=== PATIENT | female | born 1960 | race Caucasian/White ===

== ENCOUNTER → 2016-09-12 | Outpatient (CLI) | payer OTHER ==
[~2016-09-12] MED LIST: CHOLTAB11 PO; CYAN10005 PO; DOCU100C31 PO; FLAV1TAB3 PO; FURO40TA3 PO; KETO2CRE14 TOP; LEVE750T PO; MRLP17 PO; NITR-5 PO; POLY1POW2 PO; PRLSR20 PO; SIMV40TA2 PO
[2016-09-12 14:36] LABS: BASO % 0.3 %; BASO ABS # 0.01 K/uL (0-0.2); COMPLETE YES; EOS % 2.7 %; HEMATOCRIT 40.3 % (37-47); LYMPH % 32.8 %; LYMPH ABS # 1.22 K/uL (1.2-3.4); MEAN CELL VOLUME 88.8 fL (80-100); MEAN CORPUSCULAR HEMOGLOBIN 28.6 pg (25-34); MEAN CORPUSCULAR HGB CONC 32.3 g/dl (32-36); MEAN PLATELET VOLUME 9.2 fL (7.4-10.4); MONO % 12.6 %; NEUT % 51.6 %; PLATELET COUNT 220 K/uL (130-400); RED BLOOD COUNT 4.54 M/uL (4.2-5.4); WHITE BLOOD COUNT 3.72 K/uL (4.8-10.8)
[2016-09-12 14:53] LABS: BLOOD UREA NITROGEN 20 mg/dl (7-18); BUN/CREATININE RATIO 16.3 (10-20); CALCIUM 8.8 mg/dl (8.5-10.1); CARBON DIOXIDE 28 mmol/L (21-32); CHLORIDE 107 mmol/L (98-107); GLUCOSE 97 mg/dl (70-99); SODIUM 142 mmol/L (136-145)
[2016-09-17 14:26] LABS: MYELOPEROXIDASE AB <1.0 AI (<1.0)
== END | disposition home or self-care (01) ==
LOC: C.LAB1850 12:49
PROVIDERS: ATTEND Internal Medicine
DX: E66.9 Obesity, unspecified (principal)

== ENCOUNTER 2016-11-18 09:53 | Emergency (ER) | payer OTHER ==
[~2016-11-18 09:53] MED LIST changes: -CHOLTAB11 PO; -FLAV1TAB3 PO; -POLY1POW2 PO
[2016-11-18 10:03] VITALS: TEMP 36.4
[2016-11-18] MEDS ORDERED: FLAV1TAB3 PO (10:22)
[2016-11-18] MEDS ORDERED: CHOLTAB11 PO (10:24)
[2016-11-18] MEDS ORDERED: POLY1POW2 PO (10:24)
--- NOTE | 2016-11-18 11:25 | DIAGNOSTIC IMAGING REPORT ---
LEFT KNEE 3 VIEWS CLINICAL HISTORY: pain, left leg pain COMPARISON: None. DISCUSSION: Moderate degenerative change all major joint spaces. No significant joint effusion. Mild reactive osteophytic change. There is no evidence for soft tissue swelling. IMPRESSION: Moderate rather significant degenerative change all major joint spaces. No acute process. Electronically signed by: Tejas Roth M.D. 11/18/2016 11:24 AM Dictated Date/Time: 11/18/2016 11:23 AM
--- NOTE | 2016-11-18 11:28 | DIAGNOSTIC IMAGING REPORT ---
LEFT ANKLE MIN 3 VIEWS ROUTINE CLINICAL HISTORY: pain, hist of surge pain COMPARISON: None DISCUSSION: Findings consistent with a bimalleolar open reduction internal fixation. Bone healing. To be complete. No acute bony abnormality. Subtalar joint is intact. Ankle mortise shows no evidence for disruption. Mild soft tissue edema is present. IMPRESSION: Postoperative change. Mild soft tissue edema. No acute bony abnormality. Electronically signed by: Tejas Roth M.D. 11/18/2016 11:27 AM Dictated Date/Time: 11/18/2016 11:26 AM
--- NOTE | 2016-11-18 11:40 | DIAGNOSTIC IMAGING REPORT ---
ULTRASOUND LEFT LOWER EXTREMITY VENOUS CLINICAL HISTORY: Left leg pain and swelling. COMPARISON STUDY: Left lower extremity venous ultrasound dated 02/23/2013. TECHNIQUE: Real-time, grayscale, and color Doppler sonography of the deep veins of the left lower extremity was performed from the inguinal crease to the calf. Compression and augmentation were utilized. FINDINGS: There is no sonographic evidence of deep venous thrombosis identified in the left lower extremity. The common femoral, superficial femoral, and popliteal veins are patent and normally compressible. The greater saphenous vein and the profunda femoris vein at the junction with the common femoral vein are clear. The visualized calf veins are patent. IMPRESSION: There is no sonographic evidence of deep venous thrombosis identified in the left lower extremity. Electronically signed by: Nikita Kinney M.D. 11/18/2016 11:38 AM Dictated Date/Time: 11/18/2016 11:38 AM
[2016-11-18 11:42] VITALS: BP 164/65; PULSE 86; O2SAT 95
--- NOTE | 2016-11-18 15:16 | EMERGENCY ROOM VISIT NOTE ---
History Report prepared by Waylon: Jennifer Sahu Under the Supervision of: Dr. Nikita Fish M.D. First contact with patient: 10:11 Chief Complaint: KNEEPAIN Stated Complaint: LEFT KNEE PAIN History of Present Illness The patient is a 56 year old female who presents to the Emergency Room with complaints of persistent left knee pain for the past couple of weeks. The mother and the niece are giving the history. They state that recently, the patient has been grabbing her left knee and has difficulty standing up and walking. They report that previously, she had an ankle injury and displayed similar grabbing behavior with that injury. They deny that the patient has had any recent falls. She does not have a fever or decreased appetite. Source of History: family (mother, niece) Onset: couple weeks ago Position: knee (left) Timing: other (persistent) Associated Symptoms: No fevers Note: Associated symptoms: no decrease in appetite. Review of Systems Unobtainable given her mental state. Past Medical & Surgical Medical Problems: (1) ACUTE KIDNEY FAILURE (2) Bronchitis (3) Cerebral palsy (4) Hernia repair (5) Myringotomy tubes (6) Renal failure syndrome (7) Seizure (8) WEGNERS Family History Patient reports no known family medical history. Social History Smoking Status: Never Smoker Alcohol Use: none Marital Status: single Housing Status: lives with family Occupation Status: disabled Current/Historical Medications Scheduled Cholecalciferol (D-5000), 5,000 UNITS PO DAILY Cyanocobalamin (Vitamin B-12), 1,000 MCG PO DAILY Docusate Sodium (Docusate Sodium), 2 CAP PO HS Flavoxate Hcl (Flavoxate Hcl), 100 MG PO TID Levetiracetam (Keppra), 750 MG PO BID Omeprazole (Prilosec), 20 MG PO DAILY Polyethylene Glycol 3350 (Bulk (Polyethylene Glycol 3350), 17 GM PO DAILY Simvastatin (Zocor), 40 MG PO QPM Scheduled PRN Furosemide (Lasix), 40 MG PO DAILY PRN for EDEMA IN LEGS Allergies Coded Allergies: Phenytoin (Unverified Allergy, Unknown, unknown, 11/18/16) MOTHER INDICATED THAT SHE WAS ONCE TAKING, BUT STOPPED BECAUSE IT WAS NOT WORKING. Topiramate (Unverified Allergy, Unknown, unknown, 11/18/16) was once taking but indicated it was not working for the pt.- per mother Physical Exam Vital Signs Date Time Temp Pulse Resp B/P Pulse Ox O2 Delivery O2 Flow Rate FiO2 11/18/16 11:42 86 16 164/65 95 Room Air 11/18/16 10:03 36.4 107 20 94 Room Air Physical Exam GENERAL: Lying on the stretcher. No acute distress. NEURO: MR noted. Moving all extremities. Awake. EXTREMITIES: No cellulitis in the lower extremities, no significant pedal edema. Left knee seems tender with movement, but there is no erythema or obvious joint effusion. Left hip and left ankle appear nontender. Medical Decision & Procedures ER Provider Diagnostic Interpretation: X ray results and stated below per my interpretation and radiologist interpretation. Other radiology results and stated below per my review and radiologist interpretation: LEFT ANKLE MIN 3 VIEWS ROUTINE CLINICAL HISTORY: pain, hist of surge pain COMPARISON: None DISCUSSION: Findings consistent with a bimalleolar open reduction internal fixation. Bone healing. To be complete. No acute bony abnormality. Subtalar joint is intact. Ankle mortise shows no evidence for disruption. Mild soft tissue edema is present. IMPRESSION: Postoperative change. Mild soft tissue edema. No acute bony abnormality. Electronically signed by: Tejas Roth M.D. 11/18/2016 11:27 AM Dictated Date/Time: 11/18/2016 11:26 AM LEFT KNEE 3 VIEWS CLINICAL HISTORY: pain, left leg pain COMPARISON: None. DISCUSSION: Moderate degenerative change all major joint spaces. No significant joint effusion. Mild reactive osteophytic change. There is no evidence for soft tissue swelling. IMPRESSION: Moderate rather significant degenerative change all major joint spaces. No acute process. Electronically signed by: Tejas Roth M.D. 11/18/2016 11:24 AM Dictated Date/Time: 11/18/2016 11:23 AM ULTRASOUND LEFT LOWER EXTREMITY VENOUS CLINICAL HISTORY: Left leg pain and swelling. COMPARISON STUDY: Left lower extremity venous ultrasound dated 02/23/2013. TECHNIQUE: Real-time, grayscale, and color Doppler sonography of the deep veins of the left lower extremity was performed from the inguinal crease to the calf. Compression and augmentation were utilized. FINDINGS: There is no sonographic evidence of deep venous thrombosis identified in the left lower extremity. The common femoral, superficial femoral, and popliteal veins are patent and normally compressible. The greater saphenous vein and the profunda femoris vein at the junction with the common femoral vein are clear. The visualized calf veins are patent. IMPRESSION: There is no sonographic evidence of deep venous thrombosis identified in the left lower extremity. Electronically signed by: Nikita Kinney M.D. 11/18/2016 11:38 AM Dictated Date/Time: 11/18/2016 11:38 AM ED Course 1012: The patient was evaluated in room A9. A complete history and physical exam was performed. 1146: I reevaluated the patient. She is resting comfortably. I updated the family on the results and treatment plan. They expressed understanding and agreement. She will be discharged home. Medical Decision Differential diagnoses: left knee effusion, Delong's cyst, DVT, cellulitis, arthritis, left ankle hardware malalignment. The patient presents with left knee pain. On exam, there was no cellulitis or evidence for a septic joint. Films of the left ankle do not show hardware malalignment or acute fracture. Left knee film shows arthritis, no large effusion, no fracture. Left leg ultrasound does not show evidence for DVT. The patient is likely having pain in her left knee from arthritis. She has had previous left knee surgery. I do think follow-up with her orthopedist would be reasonable. Tylenol for now for pain, ice for inflammation. If things are worsening, she can be returned. Impression Primary Impression: Left knee pain Scribe Attestation The scribe's documentation has been prepared under my direction and personally reviewed by me in its entirety. I confirm that the note above accurately reflects all work, treatment, procedures, and medical decision making performed by me. Departure Information Dispostion Home / Self-Care Referrals Parish Castro PA-C (PCP) Forms HOME CARE DOCUMENTATION FORM, IMPORTANT VISIT INFORMATION Patient Instructions My [facility] Additional Instructions ice for comfort as discussed tylenol for pain as directed and as needed follow with Dr. Del Castillo--call for an appt return for redness, fever or worsening symptoms no clotting or fractures today by imaging
== END 2016-11-18 12:02 | disposition home or self-care (01) ==
LOC: C.EDB 09:54 → C.EDA 12:02
DX: M25.562 Pain in left knee (principal); G40.909 Epilepsy, unspecified, not intractable, without status epilepticus; G80.9 Cerebral palsy, unspecified; Z79.899 Other long term (current) drug therapy; Z88.8 Allergy status to other drugs, medicaments and biological substances; M79.605 Pain in left leg; R60.0 Localized edema

== ENCOUNTER → 2016-12-17 | Outpatient (CLI) | payer OTHER ==
[~2016-12-17] MED LIST changes: +CHOLTAB11 PO; +FLAV1TAB3 PO; -KETO2CRE14 TOP; -MRLP17 PO; -NITR-5 PO; +POLY1POW2 PO
[2016-12-17 13:17] LABS: BASO % 0.4 %; BASO ABS # 0.02 K/uL (0-0.2); COMPLETE YES; EOS % 4.3 %; HEMATOCRIT 41.5 % (37-47); IG% 0.2 %; LYMPH ABS # 1.43 K/uL (1.2-3.4); MEAN CELL VOLUME 89.1 fL (80-100); MEAN CORPUSCULAR HGB CONC 32.5 g/dl (32-36); MONO % 11.4 %; NEUT % 51.7 %; PLATELET COUNT 226 K/uL (130-400); RED BLOOD COUNT 4.66 M/uL (4.2-5.4); WHITE BLOOD COUNT 4.47 K/uL (4.8-10.8)
[2016-12-17 13:45] LABS: BLOOD UREA NITROGEN 22 mg/dl (7-18); BUN/CREATININE RATIO 22.3 (10-20); CARBON DIOXIDE 31 mmol/L (21-32); CHLORIDE 105 mmol/L (98-107); GLUCOSE 80 mg/dl (70-99); POTASSIUM 4.1 mmol/L (3.5-5.1); SODIUM 142 mmol/L (136-145)
== END | disposition home or self-care (01) ==
LOC: C.LAB1850 11:50
PROVIDERS: ATTEND Internal Medicine
DX: F72 Severe intellectual disabilities (principal)

== ENCOUNTER → 2017-05-09 | Outpatient (CLI) | payer OTHER | END | disposition home or self-care (01) | LOC: C.RDSM 10:58 | PROVIDERS: ATTEND Orthopaedic Surgery Sports Medicine | DX: M25.562 Pain in left knee (principal) ==

== ENCOUNTER → 2017-07-22 | Outpatient (CLI) | payer OTHER ==
--- NOTE | 2017-07-22 14:12 | DIAGNOSTIC IMAGING REPORT ---
CHEST 2 VIEWS ROUTINE CLINICAL HISTORY: R06.2 [id number] COMPARISON STUDY: 09/20/2013 FINDINGS: The study is mildly limited from a technical standpoint. The heart is at the upper limits of normal in size. There is no focal pulmonary consolidation. There is no overt failure. There are no pleural effusions.[ IMPRESSION: No active disease in the chest. Electronically signed by: Max Shen M.D. 07/22/2017 2:11 PM Dictated Date/Time: 07/22/2017 2:10 PM
[2017-07-22 14:40] LABS: BASO % 0.4 %; BASO ABS # 0.02 K/uL (0-0.2); COMPLETE YES; HEMATOCRIT 42.5 % (37-47); IG% 0.2 %; LYMPH ABS # 1.15 K/uL (1.2-3.4); MEAN CELL VOLUME 91.6 fL (80-100); MEAN CORPUSCULAR HEMOGLOBIN 29.5 pg (25-34); MEAN CORPUSCULAR HGB CONC 32.2 g/dl (32-36); MEAN PLATELET VOLUME 9.1 fL (7.4-10.4); MONO % 7.3 %; NEUT % 63.1 %; PLATELET COUNT 224 K/uL (130-400); RED BLOOD COUNT 4.64 M/uL (4.2-5.4); WHITE BLOOD COUNT 4.79 K/uL (4.8-10.8)
[2017-07-22 15:07] LABS: BLOOD UREA NITROGEN 24 mg/dl (7-18); BUN/CREATININE RATIO 23.8 (10-20); CALCIUM 9.3 mg/dl (8.5-10.1); CARBON DIOXIDE 28 mmol/L (21-32); CHLORIDE 104 mmol/L (98-107); CREATININE 1.02 mg/dl (0.60-1.20); GLUCOSE 89 mg/dl (70-99); POTASSIUM 4.3 mmol/L (3.5-5.1); SODIUM 141 mmol/L (136-145)
== END | disposition home or self-care (01) ==
LOC: C.RAD1850 13:36
PROVIDERS: ATTEND Internal Medicine
DX: R06.2 Wheezing (principal)

== ENCOUNTER 2017-10-25 10:29 | Inpatient (IN) | payer OTHER ==
[~2017-10-25] VITALS: Ht 154.9 cm; Wt 88.4 kg
[2017-10-25] VITALS (9 sets, daily range): BP systolic 93–138; BP diastolic 50–86; PULSE 78–111; TEMP 37.3–38; O2SAT 84–95; Ht 154.9 cm; Wt 88.4 kg
[2017-10-25] MEDS ORDERED: ACETAMINOPHEN 500 MG TAB PO STA (10:40)
[2017-10-25] MEDS ORDERED: SODIUM CHLORIDE 0.9% 1000ML 1,000 ML IV STA ×2 (10:40→12:12)
--- NOTE | 2017-10-25 10:43 | EMERGENCY ROOM VISIT NOTE ---
History Report prepared by Waylon: Roque Flores Under the Supervision of: Dr. Andre Baca M.D. First contact with patient: 10:30 Stated Complaint: ILLNESS History of Present Illness The patient is a 57 year old female who presents to the Emergency Room with complaints of a fever that began 4 days ago. The patient is nonverbal and per the patient's mother, the patient has had a nonproductive cough with an O2 saturation of 85% on room air. Per the mother, the patient's PA advised the patient to take Tylenol every 6 hours and Robitussin. She states the patients has had decreased dietary intake since yesterday. She denies syncope and a history of diabetes. Source of History: patient, family Onset: 4 days ago Position: other (global) Timing: constant Associated Symptoms: + fevers, + cough Note: The patient has been taking Tylenol every 6 hours. Review of Systems See HPI for pertinent positives & negatives. A total of 10 systems reviewed and were otherwise negative. Past Medical & Surgical Medical Problems: (1) ACUTE KIDNEY FAILURE (2) Bronchitis (3) Cerebral palsy (4) Hernia repair (5) Myringotomy tubes (6) Renal failure syndrome (7) Seizure (8) WEGNERS Family History Patient reports no known family medical history. Social History Smoking Status: Never Smoker Alcohol Use: none Marital Status: single Housing Status: lives with family Occupation Status: disabled Current/Historical Medications Scheduled Alprazolam (Xanax), 0.25 MG PO BID Cholecalciferol (D-5000), 5,000 UNITS PO DAILY Cyanocobalamin (Vitamin B-12), 1,000 MCG PO DAILY Docusate Sodium (Docusate Sodium), 2 CAP PO HS Fesoterodine Fumarate (Toviaz), 1 TAB PO DAILY Flavoxate Hcl (Flavoxate Hcl), 100 MG PO TID Ketoconazole (Topical) (Ketoconazole), 1 APPLN TOP BID Levetiracetam (Keppra), 0.5 TAB PO BID Nitrofurantoin Macrocrystals (Macrodantin), 50 MG PO HS Omeprazole (Prilosec), 20 MG PO DAILY Simvastatin (Zocor), 40 MG PO QPM Allergies Coded Allergies: Phenytoin (Unverified Allergy, Unknown, unknown, 10/25/17) MOTHER INDICATED THAT SHE WAS ONCE TAKING, BUT STOPPED BECAUSE IT WAS NOT WORKING. Topiramate (Unverified Allergy, Unknown, unknown, 10/25/17) was once taking but indicated it was not working for the pt.- per mother Physical Exam Vital Signs Date Time Temp Pulse Resp B/P (MAP) Pulse Ox O2 Delivery O2 Flow Rate FiO2 10/25/17 12:57 39.1 115 18 105/69 95 Nasal Cannula 2.0 10/25/17 12:50 95 Nasal Cannula 2.0 10/25/17 11:26 121 18 141/93 96 Nasal Cannula 2.0 10/25/17 10:40 118 10/25/17 10:37 40.0 116 22 149/99 92 Room Air Physical Exam GENERAL: Patient is nonverbal, ill appearing and in minimal distress. HEENT: No acute trauma, normocephalic atraumatic, mucous membranes moist, no nasal congestion, no scleral icterus. NECK: No stridor, no adenopathy, no meningismus, trachea is midline. LUNGS: Diffuse crackles with faint wheezing in all lung lee. No dyspnea. Clear to auscultation and equal bilaterally. No rhonchi. HEART: Tachycardiac. Regular rhythm. No murmurs, rubs, gallops appreciated. ABDOMEN: Soft, nontender, bowel sounds positive, no masses appreciated, no peritonitis. BACK: No midline tenderness, no CVA tenderness EXTREMITIES: Normal motion all extremities, no cyanosis, no edema. NEUROLOGIC: No acute motor or sensory deficits, no focal weakness, cranial nerves grossly intact. Looking around room and interacting. Weakly moves legs. Able to use arms without problems. SKIN: No rash, no jaundice, no diaphoresis. Medical Decision & Procedures ER Provider Diagnostic Interpretation: Radiology results and stated below per my review and radiologist interpretation: CHEST ONE VIEW PORTABLE HISTORY: fever COMPARISON: Chest 07/22/2017. FINDINGS: The heart remains mildly enlarged. No focal lung consolidations to suggest pneumonia. No evidence for pulmonary edema. No pleural fusions. No pneumothorax. IMPRESSION: No significant change compared to the prior study. No acute process. Electronically signed by: Jeff Alamo M.D. 10/25/2017 12:39 PM Dictated Date/Time: 10/25/2017 12:36 PM Laboratory Results 10/25/17 11:04 Red Blood Count 4.18, Mean Corpuscular Volume 89.7, Mean Corpuscular Hemoglobin 29.2, Mean Corpuscular Hemoglobin Concent 32.5, Mean Platelet Volume 9.1, Neutrophils (%) (Auto) 85.7, Lymphocytes (%) (Auto) 9.1, Monocytes (%) (Auto) 4.8, Eosinophils (%) (Auto) 0.0, Basophils (%) (Auto) 0.2, Neutrophils # (Auto) 5.54, Lymphocytes # (Auto) 0.59, Monocytes # (Auto) 0.31, Eosinophils # (Auto) 0.00, Basophils # (Auto) 0.01 10/25/17 11:04 Test 10/25/17 10:35 10/25/17 11:04 10/25/17 11:15 10/25/17 11:41 Influenza Type A Antigen POS for Influ A (NEG) Influenza Type B Antigen Neg for Influ B (NEG) White Blood Count 6.46 K/uL (4.8-10.8) Red Blood Count 4.18 M/uL (4.2-5.4) Hemoglobin 12.2 g/dL (12.0-16.0) Hematocrit 37.5 % (37-47) Mean Corpuscular Volume 89.7 fL (80-100) Mean Corpuscular Hemoglobin 29.2 pg (25-34) Mean Corpuscular Hemoglobin Concent 32.5 g/dl (32-36) Platelet Count 122 K/uL (130-400) Mean Platelet Volume 9.1 fL (7.4-10.4) Neutrophils (%) (Auto) 85.7 % Lymphocytes (%) (Auto) 9.1 % Monocytes (%) (Auto) 4.8 % Eosinophils (%) (Auto) 0.0 % Basophils (%) (Auto) 0.2 % Neutrophils # (Auto) 5.54 K/uL (1.4-6.5) Lymphocytes # (Auto) 0.59 K/uL (1.2-3.4) Monocytes # (Auto) 0.31 K/uL (0.11-0.59) Eosinophils # (Auto) 0.00 K/uL (0-0.5) Basophils # (Auto) 0.01 K/uL (0-0.2) RDW Standard Deviation 45.3 fL (36.4-46.3) RDW Coefficient of Variation 13.8 % (11.5-14.5) Immature Granulocyte % (Auto) 0.2 % Immature Granulocyte # (Auto) 0.01 K/uL (0.00-0.02) Prothrombin Time 10.5 SECONDS (9.0-12.0) Prothromb Time International Ratio 1.0 (0.9-1.1) Anion Gap 7.0 mmol/L (3-11) Est Creatinine Clear Calc Drug Dose 48.6 ml/min Estimated GFR () 51.5 Estimated GFR (Non- 44.5 BUN/Creatinine Ratio 13.3 (10-20) Calcium Level 7.6 mg/dl (8.5-10.1) Magnesium Level 1.6 mg/dl (1.8-2.4) Total Bilirubin 0.3 mg/dl (0.2-1) Direct Bilirubin < 0.1 mg/dl (0-0.2) Aspartate Amino Transf (AST/SGOT) 21 U/L (15-37) Alanine Aminotransferase (ALT/SGPT) 20 U/L (12-78) Alkaline Phosphatase 69 U/L (45-117) Total Creatine Kinase 275 U/L (26-192) Creatine Kinase MB 3.4 ng/ml (0.5-3.6) Creatine Kinase MB Ratio 1.2 (0-3.0) Troponin I < 0.015 ng/ml (0-0.045) Total Protein 6.7 gm/dl (6.4-8.2) Albumin 2.8 gm/dl (3.4-5.0) Bedside Lactic Acid Venous 0.95 mmol/L (0.90-1.70) Urine Color YELLOW Urine Appearance CLEAR (CLEAR) Urine pH 5.0 (4.5-7.5) Urine Specific Douglas 1.024 (1.000-1.030) Urine Protein 1+ (NEG) Urine Glucose (UA) NEG (NEG) Urine Ketones NEG (NEG) Urine Occult Blood NEG (NEG) Urine Nitrite NEG (NEG) Urine Bilirubin NEG (NEG) Urine Urobilinogen NEG (NEG) Urine Leukocyte Esterase NEG (NEG) Urine WBC (Auto) 1-5 /hpf (0-5) Urine RBC (Auto) 0-4 /hpf (0-4) Urine Hyaline Casts (Auto) 1-5 /lpf (0-5) Urine Epithelial Cells (Auto) 10-20 /lpf (0-5) Urine Bacteria (Auto) NEG (NEG) Laboratory results as reviewed by me. Medications Administered Medications (Trade) Dose Ordered Sig/Zenaida Route Start Time Stop Time Status Last Admin Dose Admin Sodium Chloride 1,000 ml @ 999 mls/hr Q1H1M STAT IV 10/25/17 10:40 10/25/17 11:40 DC 10/25/17 10:59 999 MLS/HR Acetaminophen (Tylenol Tab) 1,000 mg NOW STAT PO 10/25/17 10:40 10/25/17 10:42 DC 10/25/17 11:00 1,000 MG Oseltamivir Phosphate (Tamiflu Cap) 75 mg NOW STAT PO 10/25/17 11:15 10/25/17 11:16 DC 10/25/17 11:23 75 MG Vancomycin HCl 2000 mg/Sodium Chloride 540 ml @ 200 mls/hr ONE STAT IV 10/25/17 12:01 10/25/17 14:42 10/25/17 12:54 200 MLS/HR Ceftriaxone Sodium (Rocephin Inj) 1 gm NOW STAT IV 10/25/17 12:01 10/25/17 12:03 DC 10/25/17 12:15 1 GM Sodium Chloride 1,000 ml @ 250 mls/hr Q4H STAT IV 10/25/17 12:12 10/25/17 16:11 10/25/17 12:17 250 MLS/HR ECG Per My Interpretation Indication: other (Fever) Rate (beats per minute): 116 Rhythm: sinus tachycardia Findings: no acute ischemic change, no ectopy, other (low voltage QRS) Change: EKG: Electrocardiogram per my interpretation. ED Course 1030: The patient was evaluated in room B12B. A complete history and physical exam was performed. 1144: I checked on the patient and their blood pressure is coming down. 1200: I discussed the patient's case with Dr. Cook. The patient will be evaluated for further treatment and disposition. 1300: Upon reevaluation, the patient is doing well. Discussed results and treatment plan with the patient. She verbalized understanding and agreement with the treatment plan. The patient will be evaluated for further management. Medical Decision Differential: Viral, Pharyngitis, Cellulitis, Pneumonia, Influenza, Meningitis, Sepsis, Bacteremia, UTI/Pyelonephritis, Endocrine, Toxicologic, amongst other pathologies entertained. Septic intellectually disabled 57 yr old female arrives with several days fevers , cough and worsening weakness. She was profoundly hypoxic for EMS though with NC O2 is doing much better. Single neb without steroids given just mild wheezing and more on side of crackles. CXR without acute infiltrate. Lactic acid and BP OK thus hold off from 30ml/kg fluid resus as already fluids in lee and given some here as well. She is with normal wbc as well. Fever coming down with Tylenol as is HR. Given tamiflu. With her severity and fact she will be coming in seems reasonable empirically treating with IV abx. Blood cultures obtained on arrival. Stable throughout rest of stay. Medication Reconcilliation Current Medication List: was personally reviewed by me Blood Pressure Screening Patient's blood pressure: Elevated blood pressure Blood pressure disposition: Elevated BP felt to be situational Consults Time Called: 1159 Consulting Physician: Dr. Juan Cook Returned Call: 1200 Discussed the patient's case. The patient will be evaluated for further treatment and disposition. Impression Primary Impression: Influenza A Additional Impressions: Sepsis Hypoxia Scribe Attestation The scribe's documentation has been prepared under my direction and personally reviewed by me in its entirety. I confirm that the note above accurately reflects all work, treatment, procedures, and medical decision making performed by me. Departure Information Referrals Parish Castro PA-C (PCP) Problem Qualifiers
[2017-10-25 11:13] LABS: INFLUENZA B ANTIGEN Neg for Influ B (NEG)
[2017-10-25] MEDS ORDERED: OSELTAMIVIR PHOSPHATE 75 MG CAP PO STA (11:15)
[2017-10-25 11:32] LABS: HEMATOCRIT 37.5 % (37-47); HEMOGLOBIN 12.2 g/dL (12.0-16.0); MEAN CELL VOLUME 89.7 fL (80-100); MEAN CORPUSCULAR HEMOGLOBIN 29.2 pg (25-34); MEAN CORPUSCULAR HGB CONC 32.5 g/dl (32-36); MEAN PLATELET VOLUME 9.1 fL (7.4-10.4); PLATELET COUNT 122 K/uL (130-400); RED CELL DISTRIBUTION WIDTH CV 13.8 % (11.5-14.5); RED CELL DISTRIBUTION WIDTH SD 45.3 fL (36.4-46.3); WHITE BLOOD COUNT 6.46 K/uL (4.8-10.8)
[2017-10-25 11:50] LABS: BASO % 0.2 %; BASO ABS # 0.01 K/uL (0-0.2); IG# 0.01 K/uL (0.00-0.02); LYMPH % 9.1 %; LYMPH ABS # 0.59 K/uL (1.2-3.4); MONO % 4.8 %; MONO ABS # 0.31 K/uL (0.11-0.59); NEUT % 85.7 %; NEUT ABS # 5.54 K/uL (1.4-6.5)
[2017-10-25] MEDS ORDERED: VANCOMYCIN INJ 2,000 MG in SODIUM CHLORIDE 0.9% 500ML 500 ML IV STA (12:01)
[2017-10-25] MEDS ORDERED: CEFTRIAXONE SOD INJ 1 GM ADDVIAL IV STA (12:01)
[2017-10-25 12:06] LABS: ALBUMIN 2.8 gm/dl (3.4-5.0); ALT/SGPT 20 U/L (12-78); BLOOD UREA NITROGEN 17 mg/dl (7-18); CALCIUM 7.6 mg/dl (8.5-10.1); CARBON DIOXIDE 26 mmol/L (21-32); CREATININE 1.31 mg/dl (0.60-1.20); GLUCOSE 156 mg/dl (70-99); POTASSIUM 3.9 mmol/L (3.5-5.1); SODIUM 138 mmol/L (136-145)
[2017-10-25 12:11] LABS: ALKALINE PHOSPHATASE 69 U/L (45-117); AST/SGOT 21 U/L (15-37); CKMB 3.4 ng/ml (0.5-3.6); TOTAL PROTEIN 6.7 gm/dl (6.4-8.2)
[2017-10-25] MEDS ORDERED: VANCOMYCIN CONSULT ACTIVE PRN (12:15)
--- NOTE | 2017-10-25 12:41 | DIAGNOSTIC IMAGING REPORT ---
CHEST ONE VIEW PORTABLE HISTORY: fever COMPARISON: Chest 07/22/2017. FINDINGS: The heart remains mildly enlarged. No focal lung consolidations to suggest pneumonia. No evidence for pulmonary edema. No pleural fusions. No pneumothorax. IMPRESSION: No significant change compared to the prior study. No acute process. Electronically signed by: Jeff Alamo M.D. 10/25/2017 12:39 PM Dictated Date/Time: 10/25/2017 12:36 PM
[2017-10-25] MEDS ORDERED: FESO8TAB PO (12:44)
[2017-10-25] MEDS ORDERED: ALPR0.25 PO (12:44)
[2017-10-25] MEDS ORDERED: NITR1CAP33 PO (12:44)
[2017-10-25] MEDS ORDERED: KETO2SHA TOP (12:44)
--- NOTE | 2017-10-25 13:06 | History and Physical ---
History & Physical Date & Time of Service: Oct 25, 2017 at 12:24 Chief Complaint: Illness Primary Care Physician: Parish Castro PA-C History of Present Illness Source: family Ms. Becker is a 57 year old non verbal woman with history of cerebral palsy. She started getting ill on Friday and around 1:00 this afternoon she started running a fever. She is unable to give a ros Pmhx of cerebral palsy, renal insufficiency, Wegeners granulomatosis (does not appear from outpatient records that she is undergoing treatment for this), remote history of seizure Past Medical/Surgical History Medical Problems: (1) Bronchitis Status: Resolved (2) Cerebral palsy Status: Chronic (3) Hernia repair Status: Resolved (4) Myringotomy tubes Status: Resolved (5) Renal failure syndrome Status: Chronic (6) Seizure Status: Chronic Family History Patient reports no known family medical history. Social History Smoking Status: Never Smoker Marital Status: single Housing status: lives with family Occupational Status: disabled Immunizations History of Influenza Vaccine: Yes History of Tetanus Vaccine?: Yes History of Pneumococcal: Unknown History of Hepatitis B Vaccine: No Multi-Drug Resistant Organisms History of MDRO: No Allergies Coded Allergies: Phenytoin (Unverified Allergy, Unknown, unknown, 10/25/17) MOTHER INDICATED THAT SHE WAS ONCE TAKING, BUT STOPPED BECAUSE IT WAS NOT WORKING. Topiramate (Unverified Allergy, Unknown, unknown, 10/25/17) was once taking but indicated it was not working for the pt.- per mother Home Medications Scheduled Alprazolam (Xanax), 0.25 MG PO BID Cholecalciferol (D-5000), 5,000 UNITS PO DAILY Cyanocobalamin (Vitamin B-12), 1,000 MCG PO DAILY Docusate Sodium (Docusate Sodium), 2 CAP PO HS Fesoterodine Fumarate (Toviaz), 1 TAB PO DAILY Flavoxate Hcl (Flavoxate Hcl), 100 MG PO TID Ketoconazole (Topical) (Ketoconazole), 1 APPLN TOP BID Levetiracetam (Keppra), 0.5 TAB PO BID Nitrofurantoin Macrocrystals (Macrodantin), 50 MG PO HS Omeprazole (Prilosec), 20 MG PO DAILY Simvastatin (Zocor), 40 MG PO QPM Physical Exam Vital Signs Date Time Temp Pulse Resp B/P (MAP) Pulse Ox O2 Delivery O2 Flow Rate FiO2 10/25/17 11:26 121 18 141/93 96 Nasal Cannula 2.0 10/25/17 10:40 118 10/25/17 10:37 40.0 116 22 149/99 92 Room Air General: ill appearing Eyes: normal inspection, PERLL Respiratory: chest non tender, mild coarseness left base, no respiratory distress, no accessory muscle use Cardiac: regular rate and rhythm, no rub or gallop, no murmur, no edema, GI/: active bowel sounds, no abd pain or tenderness, soft, non distended Extremities: normal range of motion, normal strength, non tender Neuro/Psych: alert and non verbal Skin: normal color, dry Diagnostics Laboratory Results Results Past 24 Hours Test 10/25/17 10:35 10/25/17 11:04 10/25/17 11:15 10/25/17 11:41 Range/Units Influenza Type A Antigen POS for Influ A NEG Influenza Type B Antigen Neg for Influ B NEG White Blood Count 6.46 4.8-10.8 K/uL Red Blood Count 4.18 4.2-5.4 M/uL Hemoglobin 12.2 12.0-16.0 g/dL Hematocrit 37.5 37-47 % Mean Corpuscular Volume 89.7 80-100 fL Mean Corpuscular Hemoglobin 29.2 25-34 pg Mean Corpuscular Hemoglobin Concent 32.5 32-36 g/dl Platelet Count 122 130-400 K/uL Mean Platelet Volume 9.1 7.4-10.4 fL Neutrophils (%) (Auto) 85.7 % Lymphocytes (%) (Auto) 9.1 % Monocytes (%) (Auto) 4.8 % Eosinophils (%) (Auto) 0.0 % Basophils (%) (Auto) 0.2 % Neutrophils # (Auto) 5.54 1.4-6.5 K/uL Lymphocytes # (Auto) 0.59 1.2-3.4 K/uL Monocytes # (Auto) 0.31 0.11-0.59 K/uL Eosinophils # (Auto) 0.00 0-0.5 K/uL Basophils # (Auto) 0.01 0-0.2 K/uL RDW Standard Deviation 45.3 36.4-46.3 fL RDW Coefficient of Variation 13.8 11.5-14.5 % Immature Granulocyte % (Auto) 0.2 % Immature Granulocyte # (Auto) 0.01 0.00-0.02 K/uL Prothrombin Time 10.5 9.0-12.0 SECONDS Prothromb Time International Ratio 1.0 0.9-1.1 Sodium Level 138 136-145 mmol/L Potassium Level 3.9 3.5-5.1 mmol/L Chloride Level 105 98-107 mmol/L Carbon Dioxide Level 26 21-32 mmol/L Anion Gap 7.0 3-11 mmol/L Blood Urea Nitrogen 17 7-18 mg/dl Creatinine 1.31 0.60-1.20 mg/dl Est Creatinine Clear Calc Drug Dose 48.6 ml/min Estimated GFR () 51.5 Estimated GFR (Non- 44.5 BUN/Creatinine Ratio 13.3 10-20 Random Glucose 156 70-99 mg/dl Calcium Level 7.6 8.5-10.1 mg/dl Magnesium Level 1.6 1.8-2.4 mg/dl Total Bilirubin 0.3 0.2-1 mg/dl Direct Bilirubin < 0.1 0-0.2 mg/dl Aspartate Amino Transf (AST/SGOT) 21 15-37 U/L Alanine Aminotransferase (ALT/SGPT) 20 12-78 U/L Alkaline Phosphatase 69 45-117 U/L Total Creatine Kinase 275 26-192 U/L Creatine Kinase MB 3.4 0.5-3.6 ng/ml Creatine Kinase MB Ratio 1.2 0-3.0 Troponin I < 0.015 0-0.045 ng/ml Total Protein 6.7 6.4-8.2 gm/dl Albumin 2.8 3.4-5.0 gm/dl Bedside Lactic Acid Venous 0.95 0.90-1.70 mmol/L Urine Color YELLOW Urine Appearance CLEAR CLEAR Urine pH 5.0 4.5-7.5 Urine Specific [employer] 1.024 1.000-1.030 Urine Protein 1+ NEG Urine Glucose (UA) NEG NEG Urine Ketones NEG NEG Urine Occult Blood NEG NEG Urine Nitrite NEG NEG Urine Bilirubin NEG NEG Urine Urobilinogen NEG NEG Urine Leukocyte Esterase NEG NEG Urine WBC (Auto) 1-5 0-5 /hpf Urine RBC (Auto) 0-4 0-4 /hpf Urine Hyaline Casts (Auto) 1-5 0-5 /lpf Urine Epithelial Cells (Auto) 10-20 0-5 /lpf Urine Bacteria (Auto) NEG NEG Microbiology Results 10/25/17 Blood Culture, Received Pending 10/25/17 Blood Culture, Received Pending CXR normal EKG Sinus tachycardia Low voltage QRS Borderline ECG When compared with ECG of 20-FEB-2015 18:47, Vent. rate has increased BY 41 BPM Impression Assessment and Plan Ms. Becker is a 57 year old woman here for Influenza A Flu A - admit telemetry - IVF, tamiflu, duonebs, titrate O2 per protocol - BC pending - CXR showed no acute process - Lactic acid wnl, febrile at 40 degrees - acetaminophen for fever, would not give ibuprofen as patient has history of kidney disease Acute on chronic kidney disease - baseline Creat appears to be around 1, elevated at 1.3 - IVF and repeat prp am Hypomagnesemia - magnesium 1.6 - 2g magnesium now History of seizures - continue home dose keppra History of incontinence/UTI - continue flovoxate - per outpatient notes, patient had stopped Toviaz - continue nitrofurantoin for UTI prophylaxis Supervising Note Dr. Cook I performed a history and physical examination on the patient. I reviewed above note and agree with it. I discussed plan with APC and patient. During my face to face encounter with the patient, I answered all of the patient's questions. Advanced Directives Existing Advance Directive: No Existing Living Will: No Existing Power of Sand Conditioner: No Existing Health Care Proxy: No Resuscitation Status FULL RESUSCITATION VTE Prophylaxis VTE Risk Assessment Done? Y/N: Yes Risk Level: Moderate Given or contraindicated: Unfractionated heparin SQ
[2017-10-25] MEDS ORDERED: SODIUM CHLORIDE 0.9% 1000ML 1,000 ML IV SCH (13:15)
[2017-10-25] MEDS ORDERED: IV FLUIDS COMPLETED PRN (14:15)
[2017-10-25] MEDS ORDERED: ALBUT/IPRATROP 3MG/0.5MG NEB 3 ML VIAL INH PRN (14:15)
[2017-10-25] MEDS: ALBUT/IPRATROP 3MG/0.5MG NEB 3 ML VIAL INH SCH ×2 (14:27→19:40)
[2017-10-25] MEDS: SODIUM CHLORIDE 0.9% 1000ML 1,000 ML IV SCH ×2 (15:15→22:30)
[2017-10-25] MEDS: FLAVOXATE HCL 100 MG PO SCH ×2 (15:48→20:46)
[2017-10-25] MEDS: MAGNESIUM SULFATE 1GM / D5W 1 GM in PREMIXED IN D5W 100 ML IV SCH ×2 (16:48→17:54)
[2017-10-25] MEDS: DOCUSATE SODIUM 100 MG CAP PO SCH (20:42)
[2017-10-25] MEDS: LEVETIRACETAM 250 MG TAB PO SCH (20:42)
[2017-10-25] MEDS: NITROFURANTOIN MACROCRYSTALS 50 MG CAP PO SCH (20:44)
[2017-10-25] MEDS: ALPRAZOLAM 0.25 MG TAB PO SCH (20:47)
[2017-10-25] MEDS: SIMVASTATIN 40 MG TAB PO SCH (20:48)
[2017-10-25] MEDS: HEPARIN SOD 5000 UNIT/0.5 ML CARP SQ SCH (20:49)
[2017-10-25] MEDS: ACETAMINOPHEN 325 MG TAB PO PRN (21:03)
[2017-10-25] MEDS: OSELTAMIVIR PHOSPHATE SUSP 30 MG/5 ML UDP PO SCH (21:30)
[2017-10-26] VITALS (20 sets, daily range): BP systolic 104–168; BP diastolic 66–81; PULSE 85–106; TEMP 37–39.4; O2SAT 89–97
[2017-10-26] MEDS: ACETAMINOPHEN 325 MG TAB PO PRN ×4 (01:41→20:47)
[2017-10-26 05:53] LABS: HEMATOCRIT 33.3 % (37-47); HEMOGLOBIN 10.8 g/dL (12.0-16.0); MEAN CELL VOLUME 90.2 fL (80-100); MEAN CORPUSCULAR HEMOGLOBIN 29.3 pg (25-34); MEAN CORPUSCULAR HGB CONC 32.4 g/dl (32-36); MEAN PLATELET VOLUME 8.8 fL (7.4-10.4); PLATELET COUNT 112 K/uL (130-400); RED CELL DISTRIBUTION WIDTH CV 14.2 % (11.5-14.5); RED CELL DISTRIBUTION WIDTH SD 47.4 fL (36.4-46.3); WHITE BLOOD COUNT 5.42 K/uL (4.8-10.8)
[2017-10-26 06:22] LABS: CALCIUM 7.4 mg/dl (8.5-10.1); CREATININE 1.04 mg/dl (0.60-1.20); POTASSIUM 3.8 mmol/L (3.5-5.1)
[2017-10-26] MEDS: ALBUT/IPRATROP 3MG/0.5MG NEB 3 ML VIAL INH SCH ×4 (06:56→19:47)
[2017-10-26] MEDS: ALPRAZOLAM 0.25 MG TAB PO SCH ×2 (07:25→19:38)
[2017-10-26] MEDS: OSELTAMIVIR PHOSPHATE SUSP 30 MG/5 ML UDP PO SCH ×2 (07:25→20:38)
[2017-10-26] MEDS: PANTOprazole SOD 40 MG TAB PO SCH (07:25)
[2017-10-26] MEDS: CYANOCOBALAMIN 500 MCG TAB (VIT B-12) PO SCH (07:25)
[2017-10-26] MEDS: FLAVOXATE HCL 100 MG PO SCH ×3 (07:26→19:39)
[2017-10-26] MEDS: CHOLECALCIFEROL 1000 INTER.UNIT TAB PO SCH (07:26)
[2017-10-26] MEDS: SODIUM CHLORIDE 0.9% 1000ML 1,000 ML IV SCH ×2 (07:27→15:15)
[2017-10-26] MEDS: LEVETIRACETAM 250 MG TAB PO SCH ×2 (07:27→19:41)
[2017-10-26] MEDS: HEPARIN SOD 5000 UNIT/0.5 ML CARP SQ SCH ×2 (08:01→20:42)
[2017-10-26] MEDS ORDERED: ONDANSETRON INJ 2 MG/ML 2 ML VIAL ONE (10:34)
--- NOTE | 2017-10-26 14:25 | Hospitalist Progress Note ---
Hospitalist Progress Note Date of Service Oct 26, 2017. (Allison Simon ., MELISSA) Subjective Pt evaluation today including: conversation w/ patient, physical exam, chart review, lab review, review of inpatient medication list Voiding: no voiding problems Ms. Becker is more interactive than she was last night and more alert. She is unable to answer review of systems (Allison Simon ., MELISSA) Medications Medications (Trade) Dose Ordered Sig/Zenaida Route Start Time Stop Time Status Last Admin Dose Admin Alprazolam (Xanax Tab) 0.25 mg BID PO 10/25/17 21:00 11/24/17 20:59 10/26/17 07:25 0.25 MG Cyanocobalamin (Vitamin B-12 Tab) 1,000 mcg DAILY PO 10/26/17 09:00 11/25/17 08:59 10/26/17 07:25 1,000 MCG Docusate Sodium (coLACE CAP) 200 mg HS PO 10/25/17 21:00 11/24/17 20:59 10/25/17 20:42 200 MG Levetiracetam (Keppra Tab) 375 mg BID PO 10/25/17 21:00 11/24/17 20:59 10/26/17 07:27 375 MG Nitrofurantoin Macrocrystals (Macrodantin Cap) 50 mg HS PO 10/25/17 21:00 10/30/17 20:59 10/25/17 20:44 50 MG Simvastatin (Zocor Tab) 40 mg QPM PO 10/25/17 21:00 11/24/17 20:59 10/25/17 20:48 40 MG Cholecalciferol (Vitamin D Tab) 5,000 inter.unit DAILY PO 10/26/17 09:00 11/25/17 08:59 10/26/17 07:26 5,000 INTER.UNIT Pantoprazole Sodium (Protonix Tab) 40 mg DAILY PO 10/26/17 09:00 11/25/17 08:59 10/26/17 07:25 40 MG Oseltamivir Phosphate (Tamiflu Susp) 30 mg BID PO 10/25/17 21:00 10/30/17 07:00 10/26/17 07:25 30 MG Sodium Chloride 1,000 ml @ 125 mls/hr Q8H IV 10/25/17 15:15 11/24/17 15:14 10/26/17 07:27 125 MLS/HR Heparin Sodium (Porcine) (Heparin Sq 5000 Unit/0.5ml) 5,000 unit Q12 SQ 10/25/17 21:00 11/24/17 20:59 10/25/17 20:49 5,000 UNIT Albuterol/ Ipratropium (Duoneb) 3 ml QIDR INH 10/25/17 16:00 11/24/17 15:59 10/26/17 11:23 3 ML Magnesium Sulfate 1 gm/Prmx 100 ml @ 100 mls/hr Q1H IV 10/25/17 16:30 10/25/17 18:29 DC 10/25/17 17:54 100 MLS/HR Ondansetron HCl (Zofran Inj) 4 mg STK-MED ONCE .ROUTE 10/26/17 10:34 10/26/17 10:35 DC 10/26/17 10:34 4 MG (Allison Simon, MELISSA) Objective Vital Signs Date Time Temp Pulse Resp B/P (MAP) Pulse Ox O2 Delivery O2 Flow Rate FiO2 10/26/17 12:32 39.3 10/26/17 12:00 Room Air 10/26/17 11:30 39.4 92 18 168/81 (110) 91 Room Air 10/26/17 11:24 91 18 91 Room Air 10/26/17 08:00 Nasal Cannula 4.0 10/26/17 07:55 37.4 106 18 110/68 (82) 96 10/26/17 07:05 37.8 97 18 118/69 (85) 97 7.0 10/26/17 06:56 85 18 92 Room Air 10/26/17 04:00 93 Nasal Cannula 3.0 10/26/17 03:39 37.6 95 20 119/71 (87) 94 Nasal Cannula 3.0 10/26/17 01:32 38.0 10/26/17 00:00 93 Nasal Cannula 3.0 10/25/17 23:30 38.0 92 22 138/76 (96) 92 Nasal Cannula 10/25/17 20:00 89 Room Air 10/25/17 19:40 78 18 84 Room Air 10/25/17 19:24 37.6 107 22 93/68 (76) 91 Room Air 10/25/17 16:00 93 Nasal Cannula 3.0 10/25/17 15:44 37.3 101 24 94/50 (65) 90 Nasal Cannula 3.0 10/25/17 14:30 101 18 92 Room Air (Allison Simon CRNP) Physical Exam Notes: General: no distress Eyes: normal inspection, PERLL Respiratory: chest non tender, clear to auscultation, normal breath sounds, no respiratory distress, no accessory muscle use Cardiac: regular rate and rhythm, no rub or gallop, no murmur, no edema, no jvd GI/: active bowel sounds, no abd pain or tenderness, soft, non distended Extremities: normal range of motion, normal strength, non tender Neuro/Psych: alert and oriented x 3, normal mood and affect Skin: normal color, dry (Allison Simon CRNP) Laboratory Results Last 24 Hours Test 10/26/17 05:22 White Blood Count 5.42 K/uL Red Blood Count 3.69 M/uL Hemoglobin 10.8 g/dL Hematocrit 33.3 % Mean Corpuscular Volume 90.2 fL Mean Corpuscular Hemoglobin 29.3 pg Mean Corpuscular Hemoglobin Concent 32.4 g/dl RDW Standard Deviation 47.4 fL RDW Coefficient of Variation 14.2 % Platelet Count 112 K/uL Mean Platelet Volume 8.8 fL Sodium Level 140 mmol/L Potassium Level 3.8 mmol/L Chloride Level 109 mmol/L Carbon Dioxide Level 25 mmol/L Anion Gap 6.0 mmol/L Blood Urea Nitrogen 17 mg/dl Creatinine 1.04 mg/dl Est Creatinine Clear Calc Drug Dose 60.3 ml/min Estimated GFR () 68.1 Estimated GFR (Non- 58.8 BUN/Creatinine Ratio 16.7 Random Glucose 88 mg/dl Calcium Level 7.4 mg/dl (Allison Simon CRNP) Assessment and Plan Ms. Becker is a 57 year old woman here for Influenza A Flu A/sepsis/hypoxic respiratory failure - continue IVF, tamiflu, duonebs, titrate O2 per protocol - BC pending - CXR showed no acute process - Lactic acid wnl at admission, continues to have intermittent fevers - acetaminophen for fever, would not give ibuprofen as patient has history of kidney disease Acute on chronic kidney disease - resolved - elevated at 1.3 on admission -at baseline this morning Hypomagnesemia - repleated History of seizures - continue home dose keppra History of incontinence/UTI - continue flovoxate - per outpatient notes, patient had stopped Toviaz - continue nitrofurantoin for UTI prophylaxis Full code Heparin dvt proph (Allison Simon ., MELISSA) Reviewed: Pt Seen/Exam by Me (Leona Saldana MD) History OFFSET PROOF PRESS OPERATOR supervision Note: I interviewed and examined the patient. Discussed with MELISSA Simon and agree with findings and plan as documented in the note. Any exceptions or clarifications are listed here: Patient seems very pleasant and is smiling. Has a cough. She pulled out her IV today and has a one-on-one sitter. She is not eating much and is having to be straight cathed. Continues to be febrile Vitals reviewed Gen: [Alert and awake, nonverbal except for some grunting and waves at me with a smile, NAD] HEENT: [anicteric sclerae, EOMI] CV: [RRR no mgr nl S1S2] Pulm: [CTAB no wcr, harsh sounding cough] Abd: [+BS soft NT ND no masses or hernias] Ext: [no edema, 2+ DP pulses] Skin: [no rashes, warm/dry] 57-year-old female with history of cerebral palsy and intellectual disability who is nonverbal, CKD stage III, Joanne's granulomatosis, seizure disorder, here with influenza A respiratory illness, sepsis, and acute hypoxemic respiratory failure. -Much improved but remains febrile -Continue supportive care, Tamiflu, no evidence of bacterial infection at this time -Continue IV fluids until improved appetite and p.o. intake -Could potentially discharge back to home tomorrow Documented By: Leona Saldana (Leona Saldana MD)
[2017-10-26] MEDS ORDERED: NURSING VERBAL MED ORDER ONE (14:45)
[2017-10-26] MEDS ORDERED: ONDANSETRON INJ 2 MG/ML 2 ML VIAL IV PRN (15:00)
[2017-10-26] MEDS: NITROFURANTOIN MACROCRYSTALS 50 MG CAP PO SCH (19:38)
[2017-10-26] MEDS: SIMVASTATIN 40 MG TAB PO SCH (19:38)
[2017-10-26] MEDS: DOCUSATE SODIUM 100 MG CAP PO SCH (19:38)
[2017-10-27] VITALS (10 sets, daily range): BP systolic 104–130; BP diastolic 62–82; PULSE 61–87; TEMP 36.7–37.4; O2SAT 88–92
[2017-10-27] MEDS: SODIUM CHLORIDE 0.9% 1000ML 1,000 ML IV SCH ×3 (01:33→15:29)
[2017-10-27 06:06] LABS: HEMATOCRIT 32.8 % (37-47); HEMOGLOBIN 10.3 g/dL (12.0-16.0); MEAN CELL VOLUME 91.9 fL (80-100); MEAN CORPUSCULAR HEMOGLOBIN 28.9 pg (25-34); MEAN CORPUSCULAR HGB CONC 31.4 g/dl (32-36); PLATELET COUNT 111 K/uL (130-400); RED CELL DISTRIBUTION WIDTH CV 14.3 % (11.5-14.5); RED CELL DISTRIBUTION WIDTH SD 48.4 fL (36.4-46.3); WHITE BLOOD COUNT 3.17 K/uL (4.8-10.8)
[2017-10-27] MEDS: ACETAMINOPHEN 325 MG TAB PO PRN ×2 (06:30→21:48)
[2017-10-27 06:39] LABS: CALCIUM 7.7 mg/dl (8.5-10.1); CREATININE 1.07 mg/dl (0.60-1.20); POTASSIUM 4.1 mmol/L (3.5-5.1)
[2017-10-27] MEDS: ALBUT/IPRATROP 3MG/0.5MG NEB 3 ML VIAL INH SCH ×4 (07:12→19:02)
[2017-10-27] MEDS: FLAVOXATE HCL 100 MG PO SCH ×3 (08:19→21:49)
[2017-10-27] MEDS: LEVETIRACETAM 250 MG TAB PO SCH ×2 (08:19→21:50)
[2017-10-27] MEDS: CYANOCOBALAMIN 500 MCG TAB (VIT B-12) PO SCH (08:19)
[2017-10-27] MEDS: PANTOprazole SOD 40 MG TAB PO SCH (08:20)
[2017-10-27] MEDS: CHOLECALCIFEROL 1000 INTER.UNIT TAB PO SCH (08:20)
[2017-10-27] MEDS: ALPRAZOLAM 0.25 MG TAB PO SCH ×2 (08:25→21:47)
[2017-10-27] MEDS: OSELTAMIVIR PHOSPHATE SUSP 30 MG/5 ML UDP PO SCH ×2 (08:25→21:53)
[2017-10-27] MEDS: HEPARIN SOD 5000 UNIT/0.5 ML CARP SQ SCH ×2 (08:26→21:51)
--- NOTE | 2017-10-27 08:32 | Clinical Documentation Query ---
ANAHI Crowell : CLINICAL DOCUMENTATION QUERIES QUERY 1 OF 2 Please document the POA status of sepsis as this was not documented on admission, but subsequently thereafter. Thank you. In your clinical opinion is this patient being managed for: ( x ) Sepsis due to influenza A, POA ( ) Sepsis due to influenza A, not POA ( ) Not Agree ( ) Other explanation of clinical findings (Please Explain) ( ) Unable to determine (Please Define) ( ) Need to Discuss QUERY 2 OF 2 Documentation includes "Acute on chronic kidney disease". This literally translates to acute kidney disease on chronic kidney disease. Acute kidney disease does not equate to SACHIN/acute renal failure per coding guidelines. Rather, it assigns to a unspecified disorder of the kidney, lacking the severity of illness and associated risk of mortality associated with SACHIN/ARF. Please clarify as clinically appropriate. Thank you. In your clinical opinion is this patient being managed for: ( x ) Acute kidney failure, POA, resolved ( ) Not Agree ( ) Other explanation of clinical findings (Please Explain) ( ) Unable to determine (Please Define) ( ) Need to Discuss The medical record reflects the following clinical findings, treatment, and risk factors. Clinical Indicators: As above Treatment: IVF, serial chemistries Risk Factors: Sepsis, influenza A infection Please clarify and document your clinical opinion in the progress notes and discharge summary. Terms such as "probable", "suspected", "likely", "questionable", "possible", or "still to be ruled out" are acceptable. IF IN AGREEMENT, YOU MUST DOCUMENT ABOVE DIAGNOSTIC STATEMENT IN DAILY PROGRESS NOTES AND DISCHARGE SUMMARY. This document is not part of the patient's record. Thank You, Rey Justice, RN [phone]
--- NOTE | 2017-10-27 14:03 | Hospitalist Progress Note ---
Hospitalist Progress Note Date of Service Oct 27, 2017. (Allison Simon ., MELISSA) Subjective Pt evaluation today including: conversation w/ patient, physical exam, chart review Voiding: no voiding problems Ms. Becker continues to spike fevers. She does not tolerate supplemental oxygen well, when I saw her this morning, she was on RA saturating 91% while sleeping. She is unable to give an ros due to her baseline mental status (Allison Simon ., MELISSA) Medications Medications Administered Medications (Trade) Dose Ordered Sig/Zenaida Route Start Time Stop Time Status Last Admin Dose Admin Sodium Chloride 1,000 ml @ 999 mls/hr Q1H1M STAT IV 10/25/17 10:40 10/25/17 11:40 DC 10/25/17 10:59 999 MLS/HR Acetaminophen (Tylenol Tab) 1,000 mg NOW STAT PO 10/25/17 10:40 10/25/17 10:42 DC 10/25/17 11:00 1,000 MG Oseltamivir Phosphate (Tamiflu Cap) 75 mg NOW STAT PO 10/25/17 11:15 10/25/17 11:16 DC 10/25/17 11:23 75 MG Vancomycin HCl 2000 mg/Sodium Chloride 540 ml @ 200 mls/hr ONE STAT IV 10/25/17 12:01 10/25/17 14:42 DC 10/25/17 12:54 200 MLS/HR Ceftriaxone Sodium (Rocephin Inj) 1 gm NOW STAT IV 10/25/17 12:01 10/25/17 12:03 DC 10/25/17 12:15 1 GM Sodium Chloride 1,000 ml @ 250 mls/hr Q4H STAT IV 10/25/17 12:12 10/25/17 16:11 DC 10/25/17 12:17 250 MLS/HR Acetaminophen (Tylenol Tab) 650 mg Q4H PRN PO 10/25/17 13:00 11/24/17 12:59 10/27/17 06:30 650 MG Alprazolam (Xanax Tab) 0.25 mg BID PO 10/25/17 21:00 11/24/17 20:59 10/27/17 08:25 0.25 MG Cyanocobalamin (Vitamin B-12 Tab) 1,000 mcg DAILY PO 10/26/17 09:00 11/25/17 08:59 10/27/17 08:19 1,000 MCG Docusate Sodium (coLACE CAP) 200 mg HS PO 10/25/17 21:00 11/24/17 20:59 10/26/17 19:38 200 MG Flavoxate HCl (Urispas Tab) 100 mg TID PO 10/25/17 14:00 11/24/17 13:59 10/27/17 08:19 100 MG Levetiracetam (Keppra Tab) 375 mg BID PO 10/25/17 21:00 11/24/17 20:59 10/27/17 08:19 375 MG Nitrofurantoin Macrocrystals (Macrodantin Cap) 50 mg HS PO 10/25/17 21:00 10/30/17 20:59 10/26/17 19:38 50 MG Simvastatin (Zocor Tab) 40 mg QPM PO 10/25/17 21:00 11/24/17 20:59 10/26/17 19:38 40 MG Cholecalciferol (Vitamin D Tab) 5,000 inter.unit DAILY PO 10/26/17 09:00 11/25/17 08:59 10/27/17 08:20 5,000 INTER.UNIT Pantoprazole Sodium (Protonix Tab) 40 mg DAILY PO 10/26/17 09:00 11/25/17 08:59 10/27/17 08:20 40 MG Oseltamivir Phosphate (Tamiflu Susp) 30 mg BID PO 10/25/17 21:00 10/30/17 07:00 10/27/17 08:25 30 MG Sodium Chloride 1,000 ml @ 125 mls/hr Q8H IV 10/25/17 15:15 11/24/17 15:14 10/27/17 08:21 125 MLS/HR Heparin Sodium (Porcine) (Heparin Sq 5000 Unit/0.5ml) 5,000 unit Q12 SQ 10/25/17 21:00 11/24/17 20:59 10/27/17 08:26 5,000 UNIT Albuterol/ Ipratropium (Duoneb) 3 ml QIDR INH 10/25/17 16:00 11/24/17 15:59 10/27/17 11:02 3 ML Magnesium Sulfate 1 gm/Prmx 100 ml @ 100 mls/hr Q1H IV 10/25/17 16:30 10/25/17 18:29 DC 10/25/17 17:54 100 MLS/HR Ondansetron HCl (Zofran Inj) 4 mg STK-MED ONCE .ROUTE 10/26/17 10:34 10/26/17 10:35 DC 10/26/17 10:34 4 MG (Allison Simon CRNP) Objective Vital Signs Date Time Temp Pulse Resp B/P (MAP) Pulse Ox O2 Delivery O2 Flow Rate FiO2 10/27/17 11:02 65 18 89 Room Air 10/27/17 08:30 91 Nasal Cannula 2.0 10/27/17 07:28 37.4 87 20 112/62 (79) 91 Nasal Cannula 2.0 10/27/17 07:16 87 18 91 Room Air 10/27/17 00:00 Room Air 10/26/17 23:15 38.4 94 20 104/66 (79) 89 Room Air 10/26/17 20:45 38.1 10/26/17 20:00 Room Air 10/26/17 19:47 87 18 92 Room Air 10/26/17 18:00 38.4 10/26/17 17:15 37.8 10/26/17 16:49 37.0 96 20 114/71 (85) 10/26/17 15:51 37.6 89 18 91 4.0 10/26/17 15:51 38.0 10/26/17 14:50 37.6 89 18 122/73 (89) 91 Room Air 10/26/17 14:40 95 18 91 Room Air 10/26/17 14:07 37.9 (Allison Simon CRNP) Physical Exam Notes: General: no distress Eyes: normal inspection, PERLL Respiratory: chest non tender, clear to auscultation, normal breath sounds, no respiratory distress, no accessory muscle use Cardiac: regular rate and rhythm, no rub or gallop, no murmur, no edema, no jvd GI/: active bowel sounds, no abd pain or tenderness, soft, non distended Extremities: normal range of motion, normal strength, non tender Neuro/Psych: drowsy, normal mood and affect Skin: normal color, dry (Allison Simon CRNP) Laboratory Results Last 24 Hours Test 10/27/17 05:44 White Blood Count 3.17 K/uL Red Blood Count 3.57 M/uL Hemoglobin 10.3 g/dL Hematocrit 32.8 % Mean Corpuscular Volume 91.9 fL Mean Corpuscular Hemoglobin 28.9 pg Mean Corpuscular Hemoglobin Concent 31.4 g/dl RDW Standard Deviation 48.4 fL RDW Coefficient of Variation 14.3 % Platelet Count 111 K/uL Mean Platelet Volume 9.0 fL Sodium Level 140 mmol/L Potassium Level 4.1 mmol/L Chloride Level 109 mmol/L Carbon Dioxide Level 25 mmol/L Anion Gap 6.0 mmol/L Blood Urea Nitrogen 16 mg/dl Creatinine 1.07 mg/dl Est Creatinine Clear Calc Drug Dose 58.6 ml/min Estimated GFR () 65.8 Estimated GFR (Non- 56.8 BUN/Creatinine Ratio 14.6 Random Glucose 85 mg/dl Calcium Level 7.7 mg/dl (Allison Simon CRNP) Assessment and Plan Ms. Becker is a 57 year old woman here for Influenza A Flu A/sepsis/hypoxic respiratory failure POA - continue IVF, tamiflu, duonebs, titrate O2 per protocol - ngtd - CXR showed no acute process - Lactic acid wnl at admission, continues to have intermittent fevers - acetaminophen for fever, would not give ibuprofen as patient has history of kidney disease SACHIN POA - elevated at 1.3 on admission - resolved Hypomagnesemia - repleated History of seizures - continue home dose keppra History of incontinence/UTI - continue flovoxate - per outpatient notes, patient had stopped Toviaz - continue nitrofurantoin for UTI prophylaxis Dispo: Attempted to contact patient mother who is her biomass plant technician to discuss but she has not returned my phone call. Awaiting PT/OT evals. Per previous ED visit in November, patient was ambulatory at that time. Full code Heparin dvt proph (Allison Simon CRNP) Reviewed: Pt Seen/Exam by Me (Leona Saldana MD) History OCCUPANCY SPECIALIST supervision Note: I interviewed and examined the patient. Discussed with MELISSA Simon and agree with findings and plan as documented in the note. Any exceptions or clarifications are listed here: Patient has been very tired this afternoon and evening and did not eat much for dinner. Last fever was late last night. Otherwise no concerns as per the nurse. The patient is nonverbal Vitals reviewed Gen: Sleeping, but does wake up when I touch her and points at the TV HEENT: anicteric sclerae, EOMI CV: RRR no mgr nl S1S2 Pulm: Some mild expiratory wheezes, harsh sounding cough Abd: +BS soft NT ND no masses or hernias Ext: no edema, 2+ DP pulses Skin: no rashes, warm/dry 57-year-old female with history of cerebral palsy and intellectual disability who is nonverbal, CKD stage III, Joanne's granulomatosis, seizure disorder, here with influenza A respiratory illness, sepsis, and acute hypoxemic respiratory failure. -Remains with malaise likely secondary to influenza -Continue supportive care, Tamiflu, no evidence of bacterial infection at this time -Continue IV fluids until improved appetite and p.o. intake, but will decrease to 100 mL's per hour as her renal function and SACHIN have improved -Awaiting callback from mother to see what her baseline physical status is to see if she is suitable to return home tomorrow or not Documented By: Leona Saldana (Leona Saldana MD)
[2017-10-27] MEDS: DOCUSATE SODIUM 100 MG CAP PO SCH (21:00)
[2017-10-27] MEDS: NITROFURANTOIN MACROCRYSTALS 50 MG CAP PO SCH (21:52)
[2017-10-27] MEDS: SIMVASTATIN 40 MG TAB PO SCH (21:53)
[2017-10-28] MEDS: SODIUM CHLORIDE 0.9% 1000ML 1,000 ML IV SCH (00:41)
[2017-10-28 06:06] LABS: HEMATOCRIT 35.3 % (37-47); HEMOGLOBIN 10.8 g/dL (12.0-16.0); MEAN CELL VOLUME 92.9 fL (80-100); MEAN CORPUSCULAR HEMOGLOBIN 28.4 pg (25-34); MEAN CORPUSCULAR HGB CONC 30.6 g/dl (32-36); PLATELET COUNT 127 K/uL (130-400); RED CELL DISTRIBUTION WIDTH CV 14.5 % (11.5-14.5); RED CELL DISTRIBUTION WIDTH SD 49.4 fL (36.4-46.3)
[2017-10-28 06:34] LABS: CALCIUM 8.3 mg/dl (8.5-10.1); CREATININE 0.93 mg/dl (0.60-1.20); POTASSIUM 3.8 mmol/L (3.5-5.1)
[2017-10-28] MEDS: ALBUT/IPRATROP 3MG/0.5MG NEB 3 ML VIAL INH SCH ×4 (07:02→19:13)
[2017-10-28 07:15] VITALS: PULSE 68; TEMP 36.7; O2SAT 90
[2017-10-28] MEDS: ALPRAZOLAM 0.25 MG TAB PO SCH ×2 (08:29→19:51)
[2017-10-28] MEDS: FLAVOXATE HCL 100 MG PO SCH ×3 (08:30→19:53)
[2017-10-28] MEDS: LEVETIRACETAM 250 MG TAB PO SCH ×2 (08:30→19:53)
[2017-10-28] MEDS: CHOLECALCIFEROL 1000 INTER.UNIT TAB PO SCH (08:30)
[2017-10-28] MEDS: PANTOprazole SOD 40 MG TAB PO SCH (08:30)
[2017-10-28] MEDS: CYANOCOBALAMIN 500 MCG TAB (VIT B-12) PO SCH (08:31)
[2017-10-28] MEDS: OSELTAMIVIR PHOSPHATE SUSP 30 MG/5 ML UDP PO SCH ×2 (08:36→19:57)
[2017-10-28] MEDS: HEPARIN SOD 5000 UNIT/0.5 ML CARP SQ SCH ×2 (08:36→21:34)
[2017-10-28 10:27] VITALS: PULSE 68; O2SAT 92
--- NOTE | 2017-10-28 14:25 | Hospitalist Progress Note ---
Hospitalist Progress Note Date of Service Oct 28, 2017. (Alexandra Radford, LOLA) Subjective Pt evaluation today including: conversation w/ patient, physical exam, chart review, lab review, review of studies, review of inpatient medication list Patient seen and evaluated. No acute events overnight. Patient mostly distracted. Trying to talk to her mother and is just holding the phone. Keeps putting down the mooney called for "momma". Cannot obtain any ROS. Additional Comments: ROS deferred due to baseline mental capacity. Only verbal words are "momma" (Alexandra Radford, LOLA) Medications Current Inpatient Medications Medications (Trade) Dose Ordered Sig/Zenaida Route Start Time Stop Time Status Last Admin Dose Admin Acetaminophen (Tylenol Tab) 650 mg Q4H PRN PO 10/25/17 13:00 11/24/17 12:59 10/27/17 21:48 650 MG Alprazolam (Xanax Tab) 0.25 mg BID PO 10/25/17 21:00 11/24/17 20:59 10/28/17 08:29 0.25 MG Cyanocobalamin (Vitamin B-12 Tab) 1,000 mcg DAILY PO 10/26/17 09:00 11/25/17 08:59 10/28/17 08:31 1,000 MCG Docusate Sodium (coLACE CAP) 200 mg HS PO 10/25/17 21:00 11/24/17 20:59 10/27/17 21:00 200 MG Flavoxate HCl (Urispas Tab) 100 mg TID PO 10/25/17 14:00 11/24/17 13:59 10/28/17 13:39 100 MG Levetiracetam (Keppra Tab) 375 mg BID PO 10/25/17 21:00 11/24/17 20:59 10/28/17 08:30 375 MG Nitrofurantoin Macrocrystals (Macrodantin Cap) 50 mg HS PO 10/25/17 21:00 10/30/17 20:59 10/27/17 21:52 50 MG Simvastatin (Zocor Tab) 40 mg QPM PO 10/25/17 21:00 11/24/17 20:59 10/27/17 21:53 40 MG Cholecalciferol (Vitamin D Tab) 5,000 inter.unit DAILY PO 10/26/17 09:00 11/25/17 08:59 10/28/17 08:30 5,000 INTER.UNIT Miscellaneous Information (Order Awaiting Action) 1 ea QS N/A 10/25/17 16:00 11/24/17 15:59 Pantoprazole Sodium (Protonix Tab) 40 mg DAILY PO 10/26/17 09:00 11/25/17 08:59 10/28/17 08:30 40 MG Oseltamivir Phosphate (Tamiflu Susp) 30 mg BID PO 10/25/17 21:00 10/30/17 07:00 10/28/17 08:36 30 MG Heparin Sodium (Porcine) (Heparin Sq 5000 Unit/0.5ml) 5,000 unit Q12 SQ 10/25/17 21:00 11/24/17 20:59 10/28/17 08:36 5,000 UNIT Albuterol/ Ipratropium (Duoneb) 3 ml QIDR INH 10/25/17 16:00 11/24/17 15:59 10/27/17 16:00 3 ML Albuterol/ Ipratropium (Duoneb) 3 ml Q2H PRN INH 10/25/17 14:15 11/24/17 14:14 Miscellaneous (Iv Fluids Completed) 1 ea PRN PRN N/A 10/25/17 14:15 10/25/18 14:14 Ondansetron HCl (Zofran Inj) 4 mg Q6H PRN IV 10/26/17 15:00 11/25/17 14:59 10/28/17 05:42 4 MG (Alexandra Radford, LOLA) Objective Vital Signs Date Time Temp Pulse Resp B/P (MAP) Pulse Ox O2 Delivery O2 Flow Rate FiO2 10/28/17 10:27 68 92 10/28/17 08:30 Room Air 10/28/17 07:15 36.7 68 18 90 10/28/17 00:00 Room Air 10/27/17 22:59 37.2 70 18 130/82 (98) 92 Room Air 10/27/17 20:00 91 Room Air 10/27/17 16:01 62 18 91 Room Air 10/27/17 16:00 91 Nasal Cannula 2.0 10/27/17 15:30 69 18 91 Room Air 10/27/17 14:57 36.7 61 18 104/66 (79) 88 Room Air (Alexandra Radford PA-C) Physical Exam General Appearance: WD/WN, no apparent distress Eyes: sclerae normal Neck: supple Respiratory/Chest: lungs clear, normal breath sounds, no respiratory distress, no accessory muscle use Cardiovascular: regular rate, rhythm Abdomen: normal bowel sounds, non tender, soft Neurologic/Psychiatric: alert Skin: normal color (Alexandra Radford PA-C) Laboratory Results Last 24 Hours Test 10/27/17 17:50 10/28/17 05:33 Bedside Glucose 93 mg/dl White Blood Count 2.50 K/uL Red Blood Count 3.80 M/uL Hemoglobin 10.8 g/dL Hematocrit 35.3 % Mean Corpuscular Volume 92.9 fL Mean Corpuscular Hemoglobin 28.4 pg Mean Corpuscular Hemoglobin Concent 30.6 g/dl RDW Standard Deviation 49.4 fL RDW Coefficient of Variation 14.5 % Platelet Count 127 K/uL Mean Platelet Volume 9.0 fL Sodium Level 142 mmol/L Potassium Level 3.8 mmol/L Chloride Level 111 mmol/L Carbon Dioxide Level 26 mmol/L Anion Gap 5.0 mmol/L Blood Urea Nitrogen 12 mg/dl Creatinine 0.93 mg/dl Est Creatinine Clear Calc Drug Dose 67.4 ml/min Estimated GFR () 78.0 Estimated GFR (Non- 67.3 BUN/Creatinine Ratio 12.6 Random Glucose 79 mg/dl Calcium Level 8.3 mg/dl (Alexandra Radford PA-C) Assessment and Plan Ms. Becker is a 57 year old woman here for Influenza A Acute Hypoxic Respiratory Failure and Sepsis POA 10/10 Influenza A: IMPROVING - Fevers becoming less frequent - last fever on 10/26 at approx. 2300 - Tamiflu 30 mg BID to complete course on 10/30 SACHIN (POA) on CKD Stage III: RESOLVED - Avoid nephrotoxins and continue to monitor - hold further fluids Seizure Disorder: STABLE - Keppra 375 mg BID Incontinence and Recurrent UTIs: - Flavoxate 100 mg TID and Macrobid 50 mg HS DVT Prophylaxis: Heparin 5000 units SC BID Code Status: FULL RESUSCITATION Disposition: - PT/OT evaluations - currently recommendations for rehab - patient lives at home with elderly mother who is also sick with the presumed flu; may need temporary placement - message left with case management to assess Continued [facility] stay due to: ambulation difficulties Discharge planning: uncertain (Alexandra Radford PA-C) Reviewed: Pt Seen/Exam by Me (Leona Saldana MD) History Physician Leather Crafter Supervision Note: I interviewed and examined the patient. Discussed with NICO Radford and agree with findings and plan as documented in the note. Any exceptions or clarifications are listed here: Pt sitting in chair by bedside today and points at the hallway and keeps trying to call her mom. I helped her dial her niece and then we both spoke to her niece on the phone. As it turns out, the pt's mother is also very sick with flu-like symptoms. Pt nonverbal but appears to be doing much better, is weaned off O2, eating and drinking. Vitals reviewed Gen: NAD, pleasant, nonverbal HEENT: anicteric sclerae, EOMI CV: RRR no mgr nl S1S2 Pulm: CTAB no wcr Abd: +BS soft NT ND no masses or hernias Ext: no edema, 2+ DP pulses Skin: no rashes, warm/dry 57-year-old female with history of cerebral palsy and intellectual disability who is nonverbal, CKD stage III, Joanne's granulomatosis, seizure disorder, here with influenza A respiratory illness, sepsis, and acute hypoxemic respiratory failure. All improving and acute resp failure resolved -Continue supportive care, Tamiflu, no evidence of bacterial infection at this time -discontinue IV fluids and advance diet -with her mother being ill and elderly, she may require care at SNF temporarily and could be discharged tomorrow Documented By: Leona Saldana (Leona Saldana MD)
[2017-10-28] MEDS: DOCUSATE SODIUM 100 MG CAP PO SCH (19:52)
[2017-10-28] MEDS: NITROFURANTOIN MACROCRYSTALS 50 MG CAP PO SCH (19:52)
[2017-10-28] MEDS: SIMVASTATIN 40 MG TAB PO SCH (19:52)
[2017-10-29 01:27] VITALS: BP 137/81; PULSE 54; TEMP 37; O2SAT 94
[2017-10-29 07:00] LABS: HEMATOCRIT 34.4 % (37-47); HEMOGLOBIN 11.2 g/dL (12.0-16.0); MEAN CELL VOLUME 88.7 fL (80-100); MEAN CORPUSCULAR HEMOGLOBIN 28.9 pg (25-34); MEAN CORPUSCULAR HGB CONC 32.6 g/dl (32-36); MEAN PLATELET VOLUME 8.7 fL (7.4-10.4); PLATELET COUNT 142 K/uL (130-400); RED CELL DISTRIBUTION WIDTH CV 13.3 % (11.5-14.5); RED CELL DISTRIBUTION WIDTH SD 43.3 fL (36.4-46.3); WHITE BLOOD COUNT 2.65 K/uL (4.8-10.8)
[2017-10-29 07:01] LABS: CALCIUM 8.3 mg/dl (8.5-10.1); CREATININE 0.84 mg/dl (0.60-1.20); POTASSIUM 3.6 mmol/L (3.5-5.1)
[2017-10-29] MEDS: ALBUT/IPRATROP 3MG/0.5MG NEB 3 ML VIAL INH SCH ×3 (07:21→15:15)
[2017-10-29 07:45] VITALS: BP 112/65; PULSE 68; TEMP 36.6; O2SAT 92
[2017-10-29] MEDS: OSELTAMIVIR PHOSPHATE SUSP 30 MG/5 ML UDP PO SCH (07:53)
[2017-10-29] MEDS: ALPRAZOLAM 0.25 MG TAB PO SCH ×2 (07:53→19:54)
[2017-10-29] MEDS: LEVETIRACETAM 250 MG TAB PO SCH ×2 (07:55→19:57)
[2017-10-29] MEDS: FLAVOXATE HCL 100 MG PO SCH ×3 (07:56→19:55)
[2017-10-29] MEDS: HEPARIN SOD 5000 UNIT/0.5 ML CARP SQ SCH ×2 (07:57→20:02)
[2017-10-29] MEDS: CHOLECALCIFEROL 1000 INTER.UNIT TAB PO SCH (08:00)
[2017-10-29] MEDS: CYANOCOBALAMIN 500 MCG TAB (VIT B-12) PO SCH (08:00)
[2017-10-29] MEDS: PANTOprazole SOD 40 MG TAB PO SCH (08:00)
[2017-10-29] MEDS ORDERED: OSELTAMIVIR PHOSPHATE 75 MG CAP PO ONE (08:47)
[2017-10-29 14:57] VITALS: BP 156/64; PULSE 74; TEMP 36.2; O2SAT 96
[2017-10-29 16:00] VITALS: O2SAT 96
--- NOTE | 2017-10-29 19:53 | Hospitalist Progress Note ---
Hospitalist Progress Note Date of Service Oct 29, 2017. (Alexandra Radford, PA-C) Subjective Pt evaluation today including: conversation w/ patient, conversation w/ family , physical exam, chart review, lab review, review of studies, review of inpatient medication list Patient seen and evaluated. Patient sustained a fall the evening of 10/28 without any injury. Patient is more interactive today wanting hugs. Keeping occupied with coloring. Easily distracted. Appears to be searching for her mom and occ. appears in distress from this. Had a long discussion with niece Alexandra and mother who is admitted in [facility]m [facility]. Alexandra states she notices Terri's knees are more "wobbly" than her baseline. States she is normally good with walking but occ. gets sore knees due to arthritis and sometimes needs her hand held but they feel she is not near baseline at this time. Alexandra cannot take her home if she is more than a 1 assist. Alexandra and Mother hoping for some rehab. Explained [facility] and SNF. Explained that SNF may result in target process. Mother is not sure if she will be in the hospital much longer but feels rehab may be beneficial. She is currently on telemetry but would like to be moved to her daughter's room if she would come off tele. Will await to see if [facility] will accept her. Patient would be medically optimal for D/C pending safe disposition. Additional Comments: ROS deferred as patient is non-verbal. (Alexandra Radford, PA-C) Medications Current Inpatient Medications Medications (Trade) Dose Ordered Sig/Zenaida Route Start Time Stop Time Status Last Admin Dose Admin Acetaminophen (Tylenol Tab) 650 mg Q4H PRN PO 10/25/17 13:00 11/24/17 12:59 10/27/17 21:48 650 MG Alprazolam (Xanax Tab) 0.25 mg BID PO 10/25/17 21:00 11/24/17 20:59 10/29/17 07:53 0.25 MG Cyanocobalamin (Vitamin B-12 Tab) 1,000 mcg DAILY PO 10/26/17 09:00 11/25/17 08:59 10/28/17 08:31 1,000 MCG Docusate Sodium (coLACE CAP) 200 mg HS PO 2/17/18 21:00 11/24/17 20:59 10/27/17 21:00 200 MG Flavoxate HCl (Urispas Tab) 100 mg TID PO 10/25/17 14:00 11/24/17 13:59 10/29/17 14:22 100 MG Levetiracetam (Keppra Tab) 375 mg BID PO 10/25/17 21:00 11/24/17 20:59 10/29/17 07:55 375 MG Nitrofurantoin Macrocrystals (Macrodantin Cap) 50 mg HS PO 10/25/17 21:00 10/30/17 20:59 10/28/17 19:52 50 MG Simvastatin (Zocor Tab) 40 mg QPM PO 10/25/17 21:00 11/24/17 20:59 10/28/17 19:52 40 MG Cholecalciferol (Vitamin D Tab) 5,000 inter.unit DAILY PO 10/26/17 09:00 11/25/17 08:59 10/28/17 08:30 5,000 INTER.UNIT Miscellaneous Information (Order Awaiting Action) 1 ea QS N/A 10/25/17 16:00 11/24/17 15:59 Pantoprazole Sodium (Protonix Tab) 40 mg DAILY PO 10/26/17 09:00 11/25/17 08:59 10/28/17 08:30 40 MG Heparin Sodium (Porcine) (Heparin Sq 5000 Unit/0.5ml) 5,000 unit Q12 SQ 10/25/17 21:00 11/24/17 20:59 10/29/17 07:57 5,000 UNIT Albuterol/ Ipratropium (Duoneb) 3 ml QIDR INH 10/25/17 16:00 11/24/17 15:59 10/27/17 16:00 3 ML Albuterol/ Ipratropium (Duoneb) 3 ml Q2H PRN INH 10/25/17 14:15 11/24/17 14:14 Miscellaneous (Iv Fluids Completed) 1 ea PRN PRN N/A 10/25/17 14:15 10/25/18 14:14 Ondansetron HCl (Zofran Inj) 4 mg Q6H PRN IV 10/26/17 15:00 11/25/17 14:59 10/28/17 05:42 4 MG Oseltamivir Phosphate (Tamiflu Cap) 75 mg BID PO 10/29/17 20:00 10/29/17 22:00 Diclofenac Sodium (Voltaren 1% Top Gel) 1 appln BID EXT 10/29/17 20:00 11/28/17 19:59 (Alexandra Radford PA-C) Objective Vital Signs Date Time Temp Pulse Resp B/P (MAP) Pulse Ox O2 Delivery O2 Flow Rate FiO2 10/29/17 16:00 96 Room Air 10/29/17 14:57 36.2 74 18 156/64 (94) 96 Room Air 10/29/17 08:00 Room Air 10/29/17 07:45 36.6 68 16 112/65 (81) 92 Room Air 10/29/17 01:27 37.0 54 20 137/81 (99) 94 Room Air 10/29/17 00:00 Room Air 10/28/17 20:00 Room Air (Alexandra Radford, NICO-C) Physical Exam General Appearance: WD/WN, no apparent distress Neck: supple, no JVD, trachea midline Respiratory/Chest: lungs clear, normal breath sounds, no respiratory distress, no accessory muscle use Cardiovascular: regular rate, rhythm, no gallop, no murmur Abdomen: normal bowel sounds, non tender, soft Neurologic/Psychiatric: alert Skin: normal color (Alexandra Radford, NICO-C) Laboratory Results Last 24 Hours Test 10/29/17 06:09 White Blood Count 2.65 K/uL Red Blood Count 3.88 M/uL Hemoglobin 11.2 g/dL Hematocrit 34.4 % Mean Corpuscular Volume 88.7 fL Mean Corpuscular Hemoglobin 28.9 pg Mean Corpuscular Hemoglobin Concent 32.6 g/dl RDW Standard Deviation 43.3 fL RDW Coefficient of Variation 13.3 % Platelet Count 142 K/uL Mean Platelet Volume 8.7 fL Sodium Level 140 mmol/L Potassium Level 3.6 mmol/L Chloride Level 106 mmol/L Carbon Dioxide Level 27 mmol/L Anion Gap 7.0 mmol/L Blood Urea Nitrogen 10 mg/dl Creatinine 0.84 mg/dl Est Creatinine Clear Calc Drug Dose 74.6 ml/min Estimated GFR () 88.2 Estimated GFR (Non- 76.1 BUN/Creatinine Ratio 11.7 Random Glucose 85 mg/dl Calcium Level 8.3 mg/dl (Alexandra Radford PA-C) Assessment and Plan Ms. Becker is a 57 year old woman here for Influenza A Acute Hypoxic Respiratory Failure and Sepsis POA 10/10 Influenza A: IMPROVING - > 24 hours afebrile - Will change Duonebs to PRN - Tamiflu 75 mg BID to complete course on 10/30 SACHIN (POA) on CKD Stage III: RESOLVED - Avoid nephrotoxins and continue to monitor Seizure Disorder: STABLE - Keppra 375 mg BID Incontinence and Recurrent UTIs: - Flavoxate 100 mg TID and Macrobid 50 mg HS DVT Prophylaxis: Heparin 5000 units SC BID Code Status: FULL RESUSCITATION Disposition: - PT/OT evaluations - currently recommendations for rehab - patient lives at home with elderly mother who is also sick with the flu; may need temporary placement - message left with case management to assess - Per asa Morris - patient is very "wobbly" of the knees which is not normal for her at this level of severity; patient is unable to tell us if she is having any pain - Patient is optimal for discharge from a medical standpoint but does not have a safe disposition as mother is elderly and admitted for the flu as well as darrelneymar Alexandra can take her if she is just a one assist but states in Terri's current state she would not be able to safely assist her at home - Recommend [facility] - if she would need SNF then she may be a target process Continued [facility] stay due to: ambulation difficulties Discharge planning: rehab hospital (Alexandra Radford PA-C) Attending Attestation: Pt seen/examined, chart reviewed, care plan d/w NICO Radford. I agree w/ the burch components of her documentation. Pt nonverbal during my visit but smiling and using her hands to motion her needs. VSS no fever gen - nad heart - RRR lungs - CTA b/l abd - soft, NT ext - 1+ edema A/P: 1. acute hypoxic resp failure - resolved. 2. influenza A infection - clinically resolved. Finish tamiflu course. 3. seizure d/o - controlled. 4. cerebral palsy - at baseline. 5. deconditioning - rehab needed if she does not progress to 1+ assist level. Regulo Clark MD (Regulo Clark MD)
[2017-10-29] MEDS: DOCUSATE SODIUM 100 MG CAP PO SCH (19:54)
[2017-10-29] MEDS: SIMVASTATIN 40 MG TAB PO SCH (19:55)
[2017-10-29] MEDS ORDERED: OSELTAMIVIR PHOSPHATE 75 MG CAP PO SCH (20:00)
[2017-10-29] MEDS: DICLOFENAC SOD 1% GEL 100 GM TUBE EXT SCH (20:08)
[2017-10-29] MEDS: NITROFURANTOIN MACROCRYSTALS 50 MG CAP PO SCH (20:11)
[2017-10-29 23:01] VITALS: BP 129/82; PULSE 61; TEMP 36.8; O2SAT 93
[2017-10-30] MEDS: ALPRAZOLAM 0.25 MG TAB PO SCH ×2 (08:09→21:00)
[2017-10-30] MEDS: DICLOFENAC SOD 1% GEL 100 GM TUBE EXT SCH ×2 (08:10→21:03)
[2017-10-30] MEDS: PANTOprazole SOD 40 MG TAB PO SCH (08:10)
[2017-10-30] MEDS: CHOLECALCIFEROL 1000 INTER.UNIT TAB PO SCH (08:11)
[2017-10-30] MEDS: LEVETIRACETAM 250 MG TAB PO SCH ×2 (08:12→21:01)
[2017-10-30] MEDS: FLAVOXATE HCL 100 MG PO SCH ×3 (08:12→21:02)
[2017-10-30] MEDS: CYANOCOBALAMIN 500 MCG TAB (VIT B-12) PO SCH (08:12)
[2017-10-30] MEDS: HEPARIN SOD 5000 UNIT/0.5 ML CARP SQ SCH ×2 (08:13→21:00)
[2017-10-30 08:19] LABS: HEMATOCRIT 37.2 % (37-47); HEMOGLOBIN 12.7 g/dL (12.0-16.0); MEAN CELL VOLUME 87.5 fL (80-100); MEAN CORPUSCULAR HEMOGLOBIN 29.9 pg (25-34); MEAN CORPUSCULAR HGB CONC 34.1 g/dl (32-36); MEAN PLATELET VOLUME 8.8 fL (7.4-10.4); PLATELET COUNT 182 K/uL (130-400); RED CELL DISTRIBUTION WIDTH CV 13.2 % (11.5-14.5); WHITE BLOOD COUNT 3.15 K/uL (4.8-10.8)
[2017-10-30 09:05] LABS: CALCIUM 8.9 mg/dl (8.5-10.1); CREATININE 1.03 mg/dl (0.60-1.20); POTASSIUM 3.6 mmol/L (3.5-5.1)
[2017-10-30 10:02] VITALS: BP 109/78; PULSE 102; PULSE 57; TEMP 36.7; O2SAT 97
[2017-10-30 10:13] VITALS: O2SAT 97
[2017-10-30] MEDS: ACETAMINOPHEN 325 MG TAB PO PRN (12:39)
--- NOTE | 2017-10-30 14:21 | Hospitalist Progress Note ---
Hospitalist Progress Note Date of Service Oct 30, 2017. (Alexandra Radford, ANGELAC) Subjective Pt evaluation today including: conversation w/ patient, physical exam, chart review, lab review, review of studies, review of inpatient medication list Patient seen and evaluated. Non-verbal but appears a bit calmer today. No respiratory distress. Will finish Tamiflu today. Angélica does not feel that she is a candidate for their facility. Will touch base with family to discuss. Additional Comments: ROS deferred due to non-verbal. (Alexandra Radford, ANGELAC) Medications Current Inpatient Medications Medications (Trade) Dose Ordered Sig/Zenaida Route Start Time Stop Time Status Last Admin Dose Admin Acetaminophen (Tylenol Tab) 650 mg Q4H PRN PO 10/25/17 13:00 11/24/17 12:59 10/30/17 12:39 650 MG Alprazolam (Xanax Tab) 0.25 mg BID PO 10/25/17 21:00 11/24/17 20:59 10/30/17 08:09 0.25 MG Cyanocobalamin (Vitamin B-12 Tab) 1,000 mcg DAILY PO 10/26/17 09:00 11/25/17 08:59 10/30/17 08:12 1,000 MCG Docusate Sodium (coLACE CAP) 200 mg HS PO 10/25/17 21:00 11/24/17 20:59 10/29/17 19:54 200 MG Flavoxate HCl (Urispas Tab) 100 mg TID PO 10/25/17 14:00 11/24/17 13:59 10/30/17 12:40 100 MG Levetiracetam (Keppra Tab) 375 mg BID PO 10/25/17 21:00 11/24/17 20:59 10/30/17 08:12 375 MG Nitrofurantoin Macrocrystals (Macrodantin Cap) 50 mg HS PO 10/25/17 21:00 11/24/17 20:59 10/29/17 20:11 50 MG Simvastatin (Zocor Tab) 40 mg QPM PO 10/25/17 21:00 11/24/17 20:59 10/29/17 19:55 40 MG Cholecalciferol (Vitamin D Tab) 5,000 inter.unit DAILY PO 10/26/17 09:00 11/25/17 08:59 10/30/17 08:11 5,000 INTER.UNIT Miscellaneous Information (Order Awaiting Action) 1 ea QS N/A 10/25/17 16:00 11/24/17 15:59 Pantoprazole Sodium (Protonix Tab) 40 mg DAILY PO 10/26/17 09:00 11/25/17 08:59 10/30/17 08:10 40 MG Heparin Sodium (Porcine) (Heparin Sq 5000 Unit/0.5ml) 5,000 unit Q12 SQ 10/25/17 21:00 11/24/17 20:59 10/29/17 20:02 5,000 UNIT Albuterol/ Ipratropium (Duoneb) 3 ml Q2H PRN INH 10/25/17 14:15 11/24/17 14:14 Miscellaneous (Iv Fluids Completed) 1 ea PRN PRN N/A 10/25/17 14:15 10/25/18 14:14 Ondansetron HCl (Zofran Inj) 4 mg Q6H PRN IV 10/26/17 15:00 11/25/17 14:59 10/28/17 05:42 4 MG Diclofenac Sodium (Voltaren 1% Top Gel) 1 appln BID EXT 10/29/17 20:00 11/28/17 19:59 10/30/17 08:10 1 APPLN (Alexandra Radford PA-C) Objective Vital Signs Date Time Temp Pulse Resp B/P (MAP) Pulse Ox O2 Delivery O2 Flow Rate FiO2 10/30/17 10:13 97 Room Air 10/30/17 10:02 36.7 102 18 109/78 (88) 97 Room Air 10/30/17 08:00 Room Air 10/30/17 00:00 Room Air 10/29/17 23:01 36.8 61 18 129/82 (98) 93 Room Air 10/29/17 16:00 96 Room Air 10/29/17 14:57 36.2 74 18 156/64 (94) 96 Room Air (Alexandra Radford PA-C) Physical Exam General Appearance: WD/WN, no apparent distress Neck: supple, no JVD, trachea midline Respiratory/Chest: lungs clear, normal breath sounds, no respiratory distress, no accessory muscle use Cardiovascular: regular rate, rhythm, no gallop, no murmur Abdomen: normal bowel sounds Neurologic/Psychiatric: alert Skin: normal color (Alexandra Radford PA-C) Laboratory Results Last 24 Hours Test 10/30/17 07:28 White Blood Count 3.15 K/uL Red Blood Count 4.25 M/uL Hemoglobin 12.7 g/dL Hematocrit 37.2 % Mean Corpuscular Volume 87.5 fL Mean Corpuscular Hemoglobin 29.9 pg Mean Corpuscular Hemoglobin Concent 34.1 g/dl RDW Standard Deviation 42.0 fL RDW Coefficient of Variation 13.2 % Platelet Count 182 K/uL Mean Platelet Volume 8.8 fL Sodium Level 140 mmol/L Potassium Level 3.6 mmol/L Chloride Level 103 mmol/L Carbon Dioxide Level 31 mmol/L Anion Gap 7.0 mmol/L Blood Urea Nitrogen 8 mg/dl Creatinine 1.03 mg/dl Est Creatinine Clear Calc Drug Dose 60.8 ml/min Estimated GFR () 68.9 Estimated GFR (Non- 59.5 BUN/Creatinine Ratio 8.2 Random Glucose 86 mg/dl Calcium Level 8.9 mg/dl Chemistry Specimen Hemolysis (Alexandra Radford PA-C) Assessment and Plan Ms. Becker is a 57 year old woman here for Influenza A Acute Hypoxic Respiratory Failure and Sepsis POA 10/10 Influenza A: IMPROVING - > 24 hours afebrile - Continue Duonebs PRN - Tamiflu 75 mg BID to complete course on 10/30 SACHIN (POA) on CKD Stage III: RESOLVED - Avoid nephrotoxins and continue to monitor Seizure Disorder: STABLE - Keppra 375 mg BID Incontinence and Recurrent UTIs: - Flavoxate 100 mg TID and Macrobid 50 mg HS DVT Prophylaxis: Heparin 5000 units SC BID Code Status: FULL RESUSCITATION Disposition: - [facility] does not appear to be an option - Medically suitable for discharge pending safe disposition Continued [facility] stay due to: other (safe disposition) Discharge planning: uncertain (Alxeandra Radford PA-C) Attending Attestation: Pt seen/examined, chart reviewed, care plan d/w NICO Radford. I agree w/ the burch components of her documentation. Pt nonverbal during my visit but appeared comfortable. She did motion to her head that she had a headache. VSS no fever gen - nad heart - RRR lungs - CTA b/l abd - soft, NT ext - <1+ edema A/P: 1. acute hypoxic resp failure - resolved. 2. influenza A infection - clinically resolved. Finish tamiflu course today. 3. seizure d/o - controlled. 4. cerebral palsy - at baseline. 5. deconditioning - SNF placement; target process started. Reguol Clark MD (Regulo Clark MD)
[2017-10-30 15:27] VITALS: BP 100/69; PULSE 92; TEMP 35.9; O2SAT 96
[2017-10-30] MEDS: NITROFURANTOIN MACROCRYSTALS 50 MG CAP PO SCH (21:01)
[2017-10-30] MEDS: SIMVASTATIN 40 MG TAB PO SCH (21:03)
[2017-10-30] MEDS: DOCUSATE SODIUM 100 MG CAP PO SCH (21:03)
[2017-10-31 00:16] VITALS: BP 112/72; PULSE 54; TEMP 36.9; O2SAT 96
[2017-10-31] MEDS: CHOLECALCIFEROL 1000 INTER.UNIT TAB PO SCH (07:55)
[2017-10-31] MEDS: CYANOCOBALAMIN 500 MCG TAB (VIT B-12) PO SCH (07:55)
[2017-10-31] MEDS: PANTOprazole SOD 40 MG TAB PO SCH (07:55)
[2017-10-31] MEDS: LEVETIRACETAM 250 MG TAB PO SCH ×2 (07:55→21:44)
[2017-10-31] MEDS: FLAVOXATE HCL 100 MG PO SCH ×3 (07:55→21:41)
[2017-10-31] MEDS: DICLOFENAC SOD 1% GEL 100 GM TUBE EXT SCH ×2 (07:56→19:41)
[2017-10-31] MEDS: HEPARIN SOD 5000 UNIT/0.5 ML CARP SQ SCH ×2 (08:07→16:46)
[2017-10-31] MEDS: ALPRAZOLAM 0.25 MG TAB PO SCH ×2 (08:13→21:42)
[2017-10-31 08:16] VITALS: BP 116/74; PULSE 74; TEMP 36.8; O2SAT 92
[2017-10-31 08:30] VITALS: O2SAT 92
[2017-10-31 08:36] VITALS: O2SAT 92
[2017-10-31 14:41] VITALS: BP 113/73; PULSE 87; TEMP 36.9; O2SAT 91
[2017-10-31] MEDS: TRIAMCINOLONE ACET 0.1% CR 80 GM TUBE EXT SCH (19:40)
[2017-10-31] MEDS: DOCUSATE SODIUM 100 MG CAP PO SCH (21:42)
[2017-10-31] MEDS: SIMVASTATIN 40 MG TAB PO SCH (21:43)
[2017-10-31] MEDS: NITROFURANTOIN MACROCRYSTALS 50 MG CAP PO SCH (21:44)
[2017-11-01 00:02] VITALS: BP 125/83; PULSE 87; TEMP 36.3; O2SAT 97
[2017-11-01] MEDS: HEPARIN SOD 5000 UNIT/0.5 ML CARP SQ SCH ×3 (00:56→17:52)
[2017-11-01 07:20] VITALS: BP 139/79; PULSE 85; TEMP 36.7; O2SAT 97
--- NOTE | 2017-11-01 07:40 | Progress Note ---
Subjective Date of Service: Nov 01, 2017. Subjective Pt evaluation today including: physical exam, chart review, lab review Pain: nothing obvious during my visit PO Intake: normal per staff Voiding: no voiding problems unable to obtain ROS due to nonverbal status Problem List Medical Problems: (1) Hypoxia Status: Acute (2) Influenza A Status: Acute (3) Left knee pain Status: Acute (4) Sepsis Status: Acute Objective Vital Signs Date Time Temp Pulse Resp B/P (MAP) Pulse Ox O2 Delivery O2 Flow Rate FiO2 11/01/17 00:02 36.3 87 19 125/83 (97) 97 Room Air 11/01/17 00:00 Room Air 10/31/17 16:00 Room Air 10/31/17 14:41 36.9 87 16 113/73 (86) 91 Room Air 10/31/17 08:36 92 Room Air 10/31/17 08:30 92 Room Air 10/31/17 08:16 36.8 74 16 116/74 (88) 92 Room Air Physical Exam General Appearance: no apparent distress, + obese ENT: pharynx normal, + pertinent finding (upper lip - HSV blisters - healing) Neck: no JVD Respiratory/Chest: no respiratory distress, no accessory muscle use, + wheezing (scant end-exp wheeze b/l ) Cardiovascular: regular rate, rhythm, no gallop, no murmur Abdomen: normal bowel sounds, non tender, soft, no organomegaly Extremities: + pedal edema (<1+ b/l ), + swelling Neurologic/Psychiatric: alert, + pertinent finding (motions with hands to tell me her needs; otherwise nonverbal (baseline)) Assessment and Plan 57yo female - 1. acute hypoxic resp failure 2nd to influenza A infection - resolved. 2. influenza A infection - clinically resolved. Afebrile. has finished tamiflu course. 3. seizure d/o - controlled. Cont outpatient seizure meds. 4. cerebral palsy - at baseline. 5. deconditioning - SNF placement; target process started. 6. FEN - eating well, lytes stable. 7. DVT proph - heparin TID. 8. UTI proph - macrobid daily. dispo - SNF, Target process has been initiated Continued [facility] stay due to: other (safe disposition) Discharge planning: uncertain
[2017-11-01] MEDS: TRIAMCINOLONE ACET 0.1% CR 80 GM TUBE EXT SCH ×3 (08:43→20:02)
[2017-11-01] MEDS: LEVETIRACETAM 250 MG TAB PO SCH ×2 (08:44→20:18)
[2017-11-01] MEDS: DICLOFENAC SOD 1% GEL 100 GM TUBE EXT SCH ×2 (08:44→20:04)
[2017-11-01] MEDS: ALPRAZOLAM 0.25 MG TAB PO SCH ×2 (08:46→20:27)
[2017-11-01] MEDS: PANTOprazole SOD 40 MG TAB PO SCH (08:46)
[2017-11-01] MEDS: CHOLECALCIFEROL 1000 INTER.UNIT TAB PO SCH (08:46)
[2017-11-01] MEDS: CYANOCOBALAMIN 500 MCG TAB (VIT B-12) PO SCH (08:46)
[2017-11-01] MEDS: FLAVOXATE HCL 100 MG PO SCH ×3 (08:46→20:17)
--- NOTE | 2017-11-01 09:59 | Hospitalist Progress Note ---
Hospitalist Progress Note Date of Service Nov 01, 2017. (Lisandra Curran ., PAValentinaC) Subjective Pt evaluation today including: conversation w/ patient, physical exam, lab review, review of inpatient medication list Voiding: no voiding problems Patient resting in bed. Nonverbal at baseline- points to needs. Laughing and showing me her pictures she colored- no signs of acute distress. Cough noted. ROS not completed secondary to nonverbal. (Lisandra Curran ., NICO-C) Medications Current Inpatient Medications Medications (Trade) Dose Ordered Sig/Zenaida Route Start Time Stop Time Status Last Admin Dose Admin Acetaminophen (Tylenol Tab) 650 mg Q4H PRN PO 10/25/17 13:00 11/24/17 12:59 10/30/17 12:39 650 MG Alprazolam (Xanax Tab) 0.25 mg BID PO 10/25/17 21:00 11/24/17 20:59 11/01/17 08:46 0.25 MG Cyanocobalamin (Vitamin B-12 Tab) 1,000 mcg DAILY PO 10/26/17 09:00 11/25/17 08:59 11/01/17 08:46 1,000 MCG Docusate Sodium (coLACE CAP) 200 mg HS PO 10/25/17 21:00 11/24/17 20:59 10/31/17 21:42 200 MG Flavoxate HCl (Urispas Tab) 100 mg TID PO 10/25/17 14:00 11/24/17 13:59 11/01/17 08:46 100 MG Levetiracetam (Keppra Tab) 375 mg BID PO 10/25/17 21:00 11/24/17 20:59 11/01/17 08:44 375 MG Nitrofurantoin Macrocrystals (Macrodantin Cap) 50 mg HS PO 10/25/17 21:00 11/24/17 20:59 10/31/17 21:44 50 MG Simvastatin (Zocor Tab) 40 mg QPM PO 10/25/17 21:00 11/24/17 20:59 10/31/17 21:43 40 MG Cholecalciferol (Vitamin D Tab) 5,000 inter.unit DAILY PO 10/26/17 09:00 11/25/17 08:59 11/01/17 08:46 5,000 INTER.UNIT Miscellaneous Information (Order Awaiting Action) 1 ea QS N/A 10/25/17 16:00 11/24/17 15:59 Pantoprazole Sodium (Protonix Tab) 40 mg DAILY PO 10/26/17 09:00 11/25/17 08:59 11/01/17 08:46 40 MG Albuterol/ Ipratropium (Duoneb) 3 ml Q2H PRN INH 10/25/17 14:15 11/24/17 14:14 Miscellaneous (Iv Fluids Completed) 1 ea PRN PRN N/A 10/25/17 14:15 10/25/18 14:14 Ondansetron HCl (Zofran Inj) 4 mg Q6H PRN IV 10/26/17 15:00 11/25/17 14:59 10/28/17 05:42 4 MG Diclofenac Sodium (Voltaren 1% Top Gel) 1 appln BID EXT 10/29/17 20:00 11/28/17 19:59 11/01/17 08:44 1 APPLN Triamcinolone Acetonide (Triamcinolone Acet 0.1% Crm) 1 appln TID EXT 10/31/17 20:00 11/30/17 19:59 11/01/17 08:43 1 APPLN Diphenhydramine HCl (Benadryl Cap) 25 mg Q6H PRN PO 10/31/17 14:15 11/30/17 14:14 11/01/17 09:06 25 MG Heparin Sodium (Porcine) (Heparin Sq 5000 Unit/0.5ml) 5,000 unit Q8H SQ 10/31/17 17:00 11/24/17 20:59 11/01/17 08:47 5,000 UNIT (Lisandra Curran PA-C) Objective Vital Signs Date Time Temp Pulse Resp B/P (MAP) Pulse Ox O2 Delivery O2 Flow Rate FiO2 11/01/17 07:20 36.7 85 19 139/79 (99) 97 Room Air 11/01/17 00:02 36.3 87 19 125/83 (97) 97 Room Air 11/01/17 00:00 Room Air 10/31/17 16:00 Room Air 10/31/17 14:41 36.9 87 16 113/73 (86) 91 Room Air (Lisandra Curran, PA-C) Physical Exam General Appearance: no apparent distress, + obese Eyes: normal inspection, PERRL ENT: hearing grossly normal Neck: + pertinent finding (blister to upper lip noted- scabbed over ) Respiratory/Chest: lungs clear, no respiratory distress, no accessory muscle use Cardiovascular: regular rate, rhythm Abdomen: normal bowel sounds, non tender, soft Extremities: no calf tenderness, + swelling (bilateral lower extremities, non- pitting ) Neurologic/Psychiatric: alert Skin: normal color, warm/dry, + rash (entire back- noted upper back scratch markings ) (Lisandra Curran, PA-C) Assessment and Plan Ms. Becker is a 57 year old woman here for Influenza A Acute hypoxic respiratory failure and sepsis POA secondary to Influenza A- IMPROVING: - Continue DuoNebs PRN - Tamiflu 75 mg BID to complete course on 10/30 - BCx- no growth SACHIN (POA) on CKD Stage III- RESOLVED: Avoid nephrotoxins, renally dose medications as appropriate, and continue to monitor Seizure Disorder- STABLE: Keppra 375 mg BID h/o cerebral palsy Incontinence and Recurrent UTIs: Flavoxate 100 mg TID and Macrobid 50 mg HS Rash to entire back, likely contact dermatitis: Triamcinolone cream + Benadryl GERD: Protonix daily- resume Prilosec at discharge DVT Prophylaxis: Heparin 5000 units SC BID Code Status: FULL RESUSCITATION Disposition: Medically stable for discharge pending placement option- PT/OT and CM following (Lisandra Curran, NICO-C) Attending Attestation - Pt seen/examined, chart reviewed, care plan d/w NICO Curran. I agree w/ the burch components of her documentation. Pt w/ itching of her back. Mild lingering cough but no dyspnea noted by staff. Worked with PT today and did VERY WELL - walked in hallway - mother present for that PT session and confirmed she was at baseline. VSS no fever gen - nad, obese heart - RRR lungs - CTA b/l abd - soft, NT ext - mild edema b/l skin - contact derm rash on BACK ONLY; arms, chest, torso, abdomen, legs all spared; the rash is erythematous papules (fine) A/P: 1. flu A - resolved; finished tamiflu course 2. contact dermatitis, back only - likely due to contact with linens/sheets ( harsh detergent, excessive heat, etc) - TAC cream TID + benadryl prn cleared by PT for home updated mother - informed her of d/c to home w/ her tomorrow Josué CLARK MD (Regulo Clark MD)
[2017-11-01 16:00] VITALS: O2SAT 97
[2017-11-01 16:23] VITALS: BP 141/87; PULSE 88; TEMP 36.8; O2SAT 97
[2017-11-01] MEDS: NITROFURANTOIN MACROCRYSTALS 50 MG CAP PO SCH (20:17)
[2017-11-01] MEDS: SIMVASTATIN 40 MG TAB PO SCH (20:17)
[2017-11-01] MEDS: DOCUSATE SODIUM 100 MG CAP PO SCH (20:17)
[2017-11-01 23:52] VITALS: BP 121/88; PULSE 91; TEMP 36.8; O2SAT 94
[2017-11-02] MEDS: HEPARIN SOD 5000 UNIT/0.5 ML CARP SQ SCH ×2 (01:04→08:41)
[2017-11-02] MEDS: TRIAMCINOLONE ACET 0.1% CR 80 GM TUBE EXT SCH (05:59)
[2017-11-02 07:55] VITALS: BP 136/83; PULSE 104; TEMP 36.4; O2SAT 93
[2017-11-02] MEDS: DICLOFENAC SOD 1% GEL 100 GM TUBE EXT SCH (08:01)
[2017-11-02] MEDS: LEVETIRACETAM 250 MG TAB PO SCH (08:02)
[2017-11-02] MEDS: FLAVOXATE HCL 100 MG PO SCH (08:02)
[2017-11-02] MEDS: CHOLECALCIFEROL 1000 INTER.UNIT TAB PO SCH (08:02)
[2017-11-02] MEDS: PANTOprazole SOD 40 MG TAB PO SCH (08:02)
[2017-11-02] MEDS: CYANOCOBALAMIN 500 MCG TAB (VIT B-12) PO SCH (08:02)
[2017-11-02] MEDS: ALPRAZOLAM 0.25 MG TAB PO SCH (08:07)
[2017-11-02] MEDS ORDERED: TRMCR180 EXT (09:14)
[2017-11-02] MEDS ORDERED: DIPH25CA5 PO (09:14)
--- NOTE | 2017-11-02 09:19 | Discharge Instructions ---
Discharge Instructions Date of Service Nov 02, 2017. Admission Reason for Admission: Influenza A Discharge Discharge Diagnosis / Problem: Influenza A Discharge Goals Goal(s): Decrease discomfort, Improve function, Increase independence, Improve disease control, Learn about illness, Diagnostic testing, Therapeutic intervention, Prevent Disease Progression Activity Recommendations Activity Limitations: resume your previous activity . Instructions / Follow-Up Instructions / Follow-Up You were admitted to [facility] due to influenza A (the flu). You were treat with DuoNebs, IV fluid, and Tamiflu. You have progressed well throughout your stay and are now stable for discharge to home. Contact dermatitis (rash on back): Triamcinolone cream three times a day until rash is gone You may take Benadryl as needed for itchiness. This can be bough over-the- counter, please follow instructions on the label. Resume all other regular home medications as prescribed FOLLOW-UPS: Please follow-up with your PCP within 5-7 days Please follow-up/keep all of your subspecialty appointments Current Hospital Diet Patient's current hospital diet: Regular Diet Discharge Diet Recommended Diet: Regular Diet Pending Studies Studies pending at discharge: no Work Instructions Additional Instructions: No restrictions School Instructions Additional Instructions: No restrictions Medical Emergencies . Who to Call and When: Medical Emergencies: If at any time you feel your situation is an emergency, please call 911 immediately. . Non-Emergent Contact Non-Emergency issues call your: Primary Care Provider Call Non-Emergent contact if: you have a fever, you have any medication questions . . "Provider Documentation" section prepared by Lisandra Curran. . VTE Core Measure Inpt VTE Proph given/why not?: Unfractionated heparin SQ
--- NOTE | 2017-11-02 09:25 | Discharge Summary ---
Discharge Summary Date of Service Nov 02, 2017. Discharge Summary Admission Date: Oct 25, 2017 at 13:14 Discharge Date: Nov 02, 2017 Discharge Disposition: Home with services Principal Diagnosis: Influenza A Problems/Secondary Diagnoses: Acute hypoxic respiratory failure and sepsis POA secondary to Influenza A SACHIN (POA) on CKD Stage III Seizure Disorder h/o cerebral palsy incontinence Recurrent UTIs Contact dermatitis GERD Immunizations: Have You Had Influenza Vaccine: Yes History of Tetanus Vaccine?: Yes History of Pneumococcal: Unknown History of Hepatitis B Vaccine: No Procedures: CHEST ONE VIEW PORTABLE HISTORY: fever COMPARISON: Chest 07/22/2017. FINDINGS: The heart remains mildly enlarged. No focal lung consolidations to suggest pneumonia. No evidence for pulmonary edema. No pleural fusions. No pneumothorax. IMPRESSION: No significant change compared to the prior study. No acute process. Electronically signed by: Jeff Alamo M.D. 10/25/2017 12:39 PM Dictated Date/Time: 10/25/2017 12:36 PM The status of this report is Signed. Draft = Not yet reviewed or approved by Radiologist. Signed = Reviewed and approved by Radiologist. Consultations: None Medication Reconciliation New Medications: Diphenhydramine Hcl (Benadryl) 25 Mg Cap 25 MG PO Q6H PRN for itching for 3 Days, #12 CAP Triamcinolone Acet (Aristocort 0.1%) 240 Appln/80 Gm Cr 1 APPLN EXT TID, #1 BTL Continued Medications: Alprazolam (Xanax) 0.25 Mg Tab 0.25 MG PO BID, TAB Cholecalciferol (D-5000) 5,000 Unit Tab 5000 UNITS PO DAILY for 30 Days, TAB 3 Refills Cyanocobalamin (Vitamin B-12) 1,000 Mcg Tab 1000 MCG PO DAILY, 0 Refills Docusate Sodium (Docusate Sodium) 100 Mg Cap 2 CAP PO HS, CAP Fesoterodine Fumarate (Toviaz) 8 Mg Tab 1 TAB PO DAILY for 90 Days, #90 TAB 3 Refills Flavoxate Hcl (Flavoxate Hcl) 100 Mg Tab 100 MG PO TID Ketoconazole (Topical) (Ketoconazole) 2 % Sha 1 APPLN TOP BID for 30 Days, #120 ML 1 Refill Levetiracetam (Keppra) 750 Mg Tab 0.5 TAB PO BID, 0 Refills Nitrofurantoin Macrocrystals (Macrodantin) 50 Mg Cap 50 MG PO HS, CAP Omeprazole (Prilosec) 20 Mg Capcr 20 MG PO DAILY, 0 Refills Simvastatin (Zocor) 40 Mg Tab 40 MG PO QPM, 0 Refills Referrals At Discharge Follow up Referrals: Family Practice Referral - Within 1 Week with Parish Castro PA-C Discharge Exam ROS cannot be obtained due to nonverbal- baseline for patient Physical Exam: General Appearance: no apparent distress, + obese Eyes: normal inspection, PERRL ENT: hearing grossly normal, + pertinent finding (healing blister to upper lip ) Neck: supple Respiratory/Chest: lungs clear, no respiratory distress, no accessory muscle use Cardiovascular: regular rate, rhythm Abdomen / GI: normal bowel sounds, non tender, soft Extremities: no calf tenderness, + swelling (non-pitting of bilateral lower extremities ) Neurologic/Psychiatric: alert Skin: normal color, warm/dry, + rash (improving erythematous, macular- papular rash on back only; all other skin areas spared) Hospital Course Ms. Becker is a 57 year old woman here for Influenza A Acute hypoxic respiratory failure and sepsis POA secondary to Influenza A- RESOLVED: - Continue DuoNebs PRN - Tamiflu 75 mg BID to complete course on 10/30 - BCx- no growth SACHIN (POA) on CKD Stage III- RESOLVED: Avoid nephrotoxins, renally dose medications as appropriate, and continue to monitor Seizure Disorder- STABLE: Keppra 375 mg BID h/o cerebral palsy Incontinence and Recurrent UTIs: Flavoxate 100 mg TID and Macrobid 50 mg HS Rash to entire back, likely contact dermatitis: Triamcinolone cream TID + Benadryl PRN GERD: Protonix daily- resume Prilosec at discharge DVT Prophylaxis: Heparin 5000 units SC BID Code Status: FULL RESUSCITATION Disposition: Discharge to home w/ [facility] - Initially patient was waiting placement for rehab, but reevaluated by PT on w/ mother present- safe to return home, mother states pt is at baseline and agrees she wants patient to return home w/ her. Attending Discharge Note & Attestation - Pt seen/examined, chart reviewed, discharge care plan d/w NICO Curran. I agree w/ the burch components of her discharge summary. 57yo female with cerebral palsy and seizure d/o who presented with acute hypoxic resp failure 2nd to flu A infection. Treated in the customary fashion with tamiflu, O2, supportive care. Did well during her course and O2 was weaned off easily. She completed her entire tamiflu course while hospitalized. There was initial concern she would need rehab at a SNF but she progressed to the point where she was walking unassisted. Her mother confirmed she was at her physical baseline. Her stay was complicated by a contact dermatitis on her back that responded to topical steroids. Discharge exam - gen - nad, smiling, nonverbal neck - no JVD mouth - MMM skin - resolving macular-papular rash on the BACK ONLY; excoriation lilly upper back/nape of neck; again all other skin areas spared heart - RRR, s1, s2, no murmur lungs - CTA b/l abd - soft, obese ext - <1+ edema b/l Regulo Clark MD Total Time Spent: Greater than 30 minutes This includes examination of the patient, discharge planning, medication reconciliation, and communication with other providers. Discharge Instructions Please refer to the electronic Patient Visit Report (Discharge Instructions) for additional information. Follow-Up Please follow-up with your PCP within 5-7 days Please follow-up/keep all of your subspecialty appointments Additional Copies To Parish Castro PA-C
[2017-11-02 10:17] VITALS: BP 136/83; PULSE 104; TEMP 36.4; O2SAT 93
== END 2017-11-02 11:30 | disposition home or self-care (01) | DRG 871 ==
LOC: EDBD 10:29 → C.EDB 10:31 → C.2E 13:14 → UNDOADMIN 13:14 → ENRESERV 13:16 → EDBEDREQ 13:17 → ENRESERV 10-26 15:41 → C.4E 10-26 16:19
PROVIDERS: ADMIT Internal Medicine Sports Medicine; ATTEND Internal Medicine
DX: A41.89 Other specified sepsis (principal); J10.1 Influenza due to other identified influenza virus with other respiratory manifestations; J96.01 Acute respiratory failure with hypoxia; E83.42 Hypomagnesemia; L25.9 Unspecified contact dermatitis, unspecified cause; G80.9 Cerebral palsy, unspecified; F79 Unspecified intellectual disabilities; N18.3 Chronic kidney disease, stage 3 (moderate); R32 Unspecified urinary incontinence; G40.909 Epilepsy, unspecified, not intractable, without status epilepticus; Z51.81 Encounter for therapeutic drug level monitoring; Z79.899 Other long term (current) drug therapy; Z87.440 Personal history of urinary (tract) infections; Z88.8 Allergy status to other drugs, medicaments and biological substances